=== PATIENT | female | born 1955 | race African-American/Black ===

== ENCOUNTER 2016-12-02 17:57 | Emergency (ER) | payer MEDICAID ==
[~2016-12-02] VITALS: Ht 170.2 cm; Wt 66.7 kg
[~2016-12-02 17:57] MED LIST: CIPRO500 MG PO; CLINDAMYCIN HC300 MG ORAL; FLAGYL500 MG ORAL; GYNE-LOTRIMIN45 GM VG; IBUPROFEN600 MG ORAL; LEVAQUIN500 MG ORAL; MACRODANTIN100 MG PO; METRONIDAZOLE500 MG ORAL; NKM; NORCO 5-325 TA1 EACH ORAL; PHENAZOPYRIDIN100 MG PO; PROMETHAZINE-C118 M1 ORAL; TRAMADOL HCL50 MG ORAL; VIBRAMYCIN100 MG ORAL; VICODIN1 TAB PO; ZITHROMAX250 MG ORAL
[2016-12-02 18:06] VITALS: BP 98/68
[2016-12-02 18:40] LABS: APPEARANCE,URINE CLEAR; KETONES,URINE NEGATIVE (NEGATIVE); LEUKOCYTE ESTERASE ,URINE 1+ (NEGATIVE); NITRITE,URINE NEGATIVE (NEGATIVE); PH,URINE 5 (4.5-8.0); PROTEIN,URINE 1+ (NEGATIVE); UROBILINOGEN,URINE NORMAL MG/DL (0.0-1.0)
[2016-12-02 18:51] LABS: BACTERIA,URINE FEW /HPF; RBC,URINE 0-2 /HPF (0 - 2); SQUAMOUS EPITHELIAL CELL,UR FEW /LPF (NONE/OCC)
[2016-12-02] MEDS ORDERED: Phenazopyridine 200mg tab ORAL ONE (19:00)
[2016-12-02] MEDS ORDERED: Cephalexin 500mg cap ORAL ONE (19:00)
[2016-12-02] MEDS ORDERED: PHENAZOPYRIDIN200 MG ORAL (19:05)
[2016-12-02] MEDS ORDERED: CEPHALEXIN500 MG ORAL (19:05)
[2016-12-02 19:28] VITALS: BP 128/89
--- NOTE | 2016-12-02 20:17 | Emergency Room Report ---
History of Present Illness General Chief Complaint: General Complaint Source: Patient Present Illness [facility] The patient is a 60-year-old female presenting for possible urinary tract infection. She states that she has had increased urinary frequency and dysuria for the past 3 days. Pain is an 8/10 dull ache to the mid lower abdomen. Pain has also began to radiate to the lower back. No known provoking relieving factors. She denies any hematuria or vaginal discharge. She denies fever or chills Allergies: Coded Allergies: DOXYCYCLINE (Verified Allergy, Mild, 10/25/15) PENICILLINS (Verified Allergy, Mild, Hives, 02/06/12) Patient History Past Medical History: see triage record Pertinent Family History: none Reviewed Nursing Documentation: PMH: Agreed, PSxH: Agreed Nursing Documentation-PMH Past Medical History: No History, Except For Review of Systems All Other Systems: negative except mentioned in HPI Physical Exam Vital Signs Date Time Temp Pulse Resp B/P Pulse Ox O2 Delivery O2 Flow Rate FiO2 12/02/16 18:06 97.9 92 16 98/68 99 Room Air Sp02 EP Interpretation: reviewed, normal General Appearance: no apparent distress, alert, GCS 15, non-toxic Head: normocephalic, atraumatic Eyes: bilateral eye PERRL, bilateral eye normal inspection ENT: hearing grossly normal, normal pharynx, no angioedema, normal voice Neck: full range of motion, supple/symm/no masses Respiratory: chest non-tender, lungs clear, normal breath sounds, speaking full sentences Gastrointestinal: normal bowel sounds, soft, non-distended, no guarding, no rebound, tenderness - suprapubic Rectal: deferred Genitourinary: normal inspection, no CVA tenderness Musculoskeletal: back normal, gait/station normal, normal range of motion, non- tender, calf tenderness Neurologic: alert, oriented x3, responsive, motor strength/tone normal, sensory intact, speech normal Psychiatric: judgement/insight normal, memory normal, mood/affect normal, no suicidal/homicidal ideation Skin: normal color, no rash, warm/dry, well hydrated Medical Decision Making PA Attestation Dr. Jimenez is my supervising physician. Patient management was discussed with my supervising physician Diagnostic Impression: Primary Impression: Urinary tract infection Qualified Codes: N39.0 - Urinary tract infection, site not specified ER Course The patient is a 60-year-old female presenting for possible urinary tract infection. Differential diagnosis considered but not limited to: UTI, vaginitis, pyelonephritis, pyelonephrosis, among others PE: Afebrile. Apparent distress Abdomen is soft. There is localized tenderness to palpation over suprapubic region. No CVA tenderness Urinalysis shows Only 1+ leukocyte esterase with few bacteria Primary due to the patient's symptoms, she'll be treated for UTI. Prescription for Keflex and Pyridium given. ER precautions given Laboratory Tests Test 12/02/16 18:11 Urine Color Yellow Urine Appearance Clear Urine pH 5 (4.5-8.0) Urine Specific [place] 1.020 (1.005-1.035) Urine Protein 1+ (NEGATIVE) H Urine Glucose (UA) Negative (NEGATIVE) Urine Ketones Negative (NEGATIVE) Urine Occult Blood Negative (NEGATIVE) Urine Nitrite Negative (NEGATIVE) Urine Bilirubin Negative (NEGATIVE) Urine Urobilinogen Normal MG/DL (0.0-1.0) Urine Leukocyte Esterase 1+ (NEGATIVE) H Urine RBC 0-2 /HPF (0 - 2) Urine WBC 2-4 /HPF (0 - 2) Urine Squamous Epithelial Cells Few /LPF (NONE/OCC) Urine Bacteria Few /HPF (NONE) Lab Results Impression Urinalysis shows 1+ leukocyte esterase as well as few bacteria no nitrites Last Vital Signs Date Time Temp Pulse Resp B/P Pulse Ox O2 Delivery O2 Flow Rate FiO2 12/02/16 19:28 98.9 89 18 128/89 100 Room Air Status: improved Disposition: HOME, SELF-CARE Condition: Improved Scripts Cephalexin* (KEFLEX*) 500 Mg Capsule 500 MG ORAL EVERY 12 HOURS, #14 CAP 0 Refills Prov: TERZIAN,SOFIA P.A. 12/02/16 Phenazopyridine Hcl* (PYRIDIUM*) 200 Mg Tablet 200 MG ORAL THREE TIMES A DAY, #6 TAB 0 Refills Prov: TERZIAN,SOFIA P.A. 12/02/16 Patient Instructions: Urinary Tract Infection Additional Instructions: I discussed my findings with the patient. All questions and concerns have been answered. Treatment and medication compliance have been addressed. I advised the patient that they need to follow up with PMD in 3-5 days. Return to ED if symptoms worsen, new symptoms arise, or if needed for any reason. Patient verbalized understanding of discharge instructions. TERBROAN,SOFIA P.A. Dec 02, 2016 20:17
== END 2016-12-02 19:28 | disposition home or self-care (01) ==
LOC: EMR 18:35
DX: N39.0 Urinary tract infection, site not specified (principal); M54.5 Low back pain; Z88.0 Allergy status to penicillin; Z88.8 Allergy status to other drugs, medicaments and biological substances
CPT/HCPCS: 81003; 99284

== ENCOUNTER 2016-12-11 13:39 | Emergency (ER) | payer MEDICAID ==
[~2016-12-11] VITALS: Ht 170.2 cm; Wt 65.8 kg
[~2016-12-11 13:39] MED LIST changes: +CEPHALEXIN500 MG ORAL; +PHENAZOPYRIDIN200 MG ORAL
[2016-12-11 14:38] VITALS: BP 100/71
[2016-12-11 15:02] LABS: APPEARANCE,URINE SLIGHTLY CLOUDY; KETONES,URINE NEGATIVE (NEGATIVE); LEUKOCYTE ESTERASE ,URINE 1+ (NEGATIVE); NITRITE,URINE NEGATIVE (NEGATIVE); PH,URINE 5 (4.5-8.0); PROTEIN,URINE NEGATIVE (NEGATIVE); UROBILINOGEN,URINE NORMAL MG/DL (0.0-1.0)
[2016-12-11 15:19] LABS: BACTERIA,URINE MODERATE /HPF; ICTOTEST NEGATIVE; RBC,URINE 0-2 /HPF (0 - 2); SQUAMOUS EPITHELIAL CELL,UR MANY /LPF (NONE/OCC)
--- NOTE | 2016-12-11 15:23 | Emergency Room Report ---
History of Present Illness General Chief Complaint: Female Urogenital Problems Source: Patient Present Illness HPI 60-year-old female presents to the emergency department complaining of recurrence of dysuria, reports the, and bladder discomfort x3 days. Patient states that she was treated approximately one week ago for UTI. She states that her symptoms were resolved temporarily that return. Patient denies fevers or chills. Patient denies low back pain, abdominal tenderness or rashes. denies vaginal discharge or hematuria. pt. also reports cloudy appearance and strong odor of urine. Denies constipation or diarrhea. Denies CP, Palpitations, LOC, AMS, dizziness, Changes in Vision, Sensation, paresthesias, or a sudden severe headache. Allergies: Coded Allergies: DOXYCYCLINE (Verified Allergy, Mild, 10/25/15) PENICILLINS (Verified Allergy, Mild, Hives, 02/06/12) Patient History Past Medical History: see triage record Past Surgical History: none Pertinent Family History: none Now: No Reviewed Nursing Documentation: PMH: Agreed, PSxH: Agreed Review of Systems All Other Systems: negative except mentioned in HPI Physical Exam Vital Signs Date Time Temp Pulse Resp B/P Pulse Ox O2 Delivery O2 Flow Rate FiO2 12/11/16 13:42 98.1 100 16 100/71 96 Room Air Sp02 EP Interpretation: reviewed, normal General Appearance: no apparent distress, alert, GCS 15, non-toxic Head: normocephalic, atraumatic Eyes: bilateral eye PERRL, bilateral eye normal inspection ENT: hearing grossly normal, normal voice Neck: full range of motion Respiratory: lungs clear, normal breath sounds, speaking full sentences Cardiovascular #1: regular rate, rhythm, tachycardia - 100bpm Gastrointestinal: normal bowel sounds, non tender, soft, no guarding, no rebound, other - no abdominal ttp Genitourinary: normal inspection, no CVA tenderness Musculoskeletal: back normal, gait/station normal, normal range of motion Neurologic: alert, oriented x3, responsive, motor strength/tone normal, sensory intact, speech normal Psychiatric: judgement/insight normal, memory normal, mood/affect normal Skin: normal color, no rash, warm/dry, well hydrated Medical Decision Making PA Attestation Dr. Jimenez is my supervising Physician whom patient management has been discussed with. Diagnostic Impression: Primary Impression: UTI (urinary tract infection) Qualified Codes: N30.01 - Acute cystitis with hematuria ER Course 60-year-old female presents to the emergency department complaining of recurrence of dysuria, reports the, and bladder discomfort x3 days. Patient states that she was treated approximately one week ago for UTI. She states that her symptoms were resolved temporarily that return. Patient denies fevers or chills. Patient denies low back pain, abdominal tenderness or rashes. denies vaginal discharge or hematuria. pt. also reports cloudy appearance and strong odor of urine. Denies constipation or diarrhea. Denies CP, Palpitations, LOC, AMS, dizziness, Changes in Vision, Sensation, paresthesias, or a sudden severe headache. Ddx considered but are not limited to UTi , Pyelo, STI, Stone, Cystitis Vital signs: are WNL, pt. is afebrile H&PE are most consistent with UTI ORDERS: - UA labs are attached : positive for many bacteria, elevated WBC's and leukocyte esterases consistent with UTI ED INTERVENTIONS: -Pyridium PO DISCHARGE: At this time pt. is stable for d/c to home. Will provide printed patient care instructions, and any necessary prescriptions. Care plan and follow up instructions have been discussed with the patient prior to discharge. Labs Test 12/11/16 14:45 Urine Color [place] Urine Appearance Slightly cloudy Urine pH 5 (4.5-8.0) Urine Specific [place] 1.025 (1.005-1.035) Urine Protein Negative (NEGATIVE) Urine Glucose (UA) Negative (NEGATIVE) Urine Ketones Negative (NEGATIVE) Urine Occult Blood Negative (NEGATIVE) Urine Nitrite Negative (NEGATIVE) Urine Bilirubin Negative (NEGATIVE) Urine Ictotest Negative Urine Urobilinogen Normal MG/DL (0.0-1.0) Urine Leukocyte Esterase 1+ (NEGATIVE) Urine RBC 0-2 /HPF (0 - 2) Urine WBC 5-10 /HPF (0 - 2) Urine Squamous Epithelial Cells Many /LPF (NONE/OCC) Urine Bacteria Moderate /HPF (NONE) Last Vital Signs Date Time Temp Pulse Resp B/P Pulse Ox O2 Delivery O2 Flow Rate FiO2 12/11/16 14:38 98.1 78 16 100/71 96 Room Air Disposition: HOME, SELF-CARE Condition: Stable Scripts Phenazopyridine Hcl* (PYRIDIUM*) 100 Mg Tablet 100 MG ORAL THREE TIMES A DAY for 3 Days, #9 TAB Prov: Zoe Chahal 12/11/16 Trimethoprim/Sulfamethoxazole 160/800* (BACTRIM DS TABLET*) 1 Each Tablet 1 TAB ORAL TWICE A DAY for 5 Days, #10 TAB Prov: Zoe Chahal 12/11/16 Referrals: NON PHYSICIAN (PCP) Patient Instructions: Urinary Tract Infection Additional Instructions: Take medications as directed. Follow up with a Primary Care Provider in 3-5 days, even if your symptoms have resolved. --Please review list of primary care clinics, if you do not already have a primary care provider Return sooner to ED if new symptoms occur, or current symptoms become worse. Pyridium will cause your urine to change color (Red/[place]), this is a normal side effect of the medication. - Please note that this Emergency Department Report was dictated using [employer] naturopathic medicine technology software, occasionally this can lead to erroneous entry secondary to interpretation by the dictation equipment. Zoe Chahal Dec 11, 2016 15:23
[2016-12-11] MEDS ORDERED: BACTRIM DS TAB1 EAC1 ORAL (15:24)
[2016-12-11] MEDS ORDERED: PHENAZOPYRIDIN100 MG ORAL (15:24)
[2016-12-11] MEDS ORDERED: Phenazopyridine 200mg tab ORAL ONE (15:30)
[2016-12-11 15:34] VITALS: BP 100/71
== END 2016-12-11 15:38 | disposition home or self-care (01) ==
LOC: EMR 14:32
DX: N30.01 Acute cystitis with hematuria (principal); Z88.0 Allergy status to penicillin; Z88.8 Allergy status to other drugs, medicaments and biological substances
CPT/HCPCS: 81003; 87086; 99284

== ENCOUNTER 2017-04-28 17:42 | Emergency (ER) | payer MEDICAID ==
[~2017-04-28] VITALS: Ht 170.2 cm; Wt 68.0 kg
[~2017-04-28 17:42] MED LIST changes: +BACTRIM DS TAB1 EAC1 ORAL; +PHENAZOPYRIDIN100 MG ORAL
[2017-04-28 17:57] VITALS: BP 99/63
[2017-04-28] MEDS ORDERED: Phenazopyridine 200mg tab ORAL ONE (18:00)
[2017-04-28 18:45] LABS: APPEARANCE,URINE CLEAR; BILIRUBIN, URINE NEGATIVE (NEGATIVE); GLUCOSE, URINE (UA) NEGATIVE (NEGATIVE); KETONES,URINE NEGATIVE (NEGATIVE); LEUKOCYTE ESTERASE ,URINE 1+ (NEGATIVE); NITRITE,URINE NEGATIVE (NEGATIVE); PH,URINE 5 (4.5-8.0); PROTEIN,URINE 1+ (NEGATIVE); UROBILINOGEN,URINE NORMAL MG/DL (0.0-1.0)
[2017-04-28 18:51] LABS: COLOR,URINE YELLOW
--- NOTE | 2017-04-28 19:07 | Emergency Room Report ---
History of Present Illness General Chief Complaint: Female Urogenital Problems Present Illness HPI 61-year-old female presents to the emergency department complaining of dysuria and urinary frequency x3 days. Patient denies nausea, vomiting, fevers, chills. She denies pain at this time. Denies hematuria, abdominal pain or tenderness. Denies confusion. Denies CP, Palpitations, LOC, AMS, dizziness, Changes in Vision, Sensation, paresthesias, or a sudden severe headache. Allergies: Coded Allergies: DOXYCYCLINE (Verified Allergy, Mild, 10/25/15) PENICILLINS (Verified Allergy, Mild, Hives, 02/06/12) Patient History Past Medical History: see triage record Past Surgical History: none Pertinent Family History: none Now: No Immunizations: UTD Reviewed Nursing Documentation: PMH: Agreed, PSxH: Agreed Review of Systems All Other Systems: negative except mentioned in HPI Physical Exam Vital Signs Date Time Temp Pulse Resp B/P (MAP) Pulse Ox O2 Delivery O2 Flow Rate FiO2 04/28/17 17:47 97.9 66 20 99/63 99 Room Air Sp02 EP Interpretation: reviewed, normal General Appearance: no apparent distress, alert, GCS 15, non-toxic Head: normocephalic, atraumatic ENT: hearing grossly normal, normal voice Neck: full range of motion Respiratory: lungs clear, normal breath sounds, speaking full sentences Cardiovascular #1: regular rate, rhythm Gastrointestinal: normal bowel sounds, non tender, soft, no guarding Rectal: deferred Genitourinary: normal inspection, no CVA tenderness Musculoskeletal: back normal, gait/station normal, normal range of motion, non- tender Neurologic: alert, oriented x3, responsive, motor strength/tone normal, sensory intact, normal gait, speech normal Skin: normal color, no rash, warm/dry, well hydrated Medical Decision Making PA Attestation Dr. Wilson is my supervising Physician whom patient management has been discussed with. Diagnostic Impression: Primary Impression: Dysuria Additional Impression: Urinary tract infection Qualified Codes: N30.00 - Acute cystitis without hematuria ER Course Pt. presents to the ED c/o dysuria, x 3 days. Ddx considered but are not limited to UTi , Pyelo, STI, Stone, Cystitis Vital signs: are WNL, pt. is afebrile H&PE are most consistent with UTI ORDERS: - UA labs are attached : few bacteria and few squamous cells suspicious for contamination -- as pt. is symptomatic will treat clinically. ED INTERVENTIONS: -Pyridium PO DISCHARGE: At this time pt. is stable for d/c to home. Will provide printed patient care instructions, and any necessary prescriptions. Care plan and follow up instructions have been discussed with the patient prior to discharge. Labs Test 04/28/17 18:20 Urine Color Yellow Urine Appearance Clear Urine pH 5 (4.5-8.0) Urine Specific [place] 1.025 (1.005-1.035) Urine Protein 1+ (NEGATIVE) Urine Glucose (UA) Negative (NEGATIVE) Urine Ketones Negative (NEGATIVE) Urine Occult Blood 1+ (NEGATIVE) Urine Nitrite Negative (NEGATIVE) Urine Bilirubin Negative (NEGATIVE) Urine Urobilinogen Normal MG/DL (0.0-1.0) Urine Leukocyte Esterase 1+ (NEGATIVE) Urine RBC 0-2 /HPF (0 - 2) Urine WBC 0-2 /HPF (0 - 2) Urine Squamous Epithelial Cells Few /LPF (NONE/OCC) Urine Bacteria Few /HPF (NONE) Urine Mucus Few /LPF (NONE/OCC) Last Vital Signs Date Time Temp Pulse Resp B/P (MAP) Pulse Ox O2 Delivery O2 Flow Rate FiO2 04/28/17 17:57 97.9 20 99/63 99 Room Air 04/28/17 17:47 66 Disposition: HOME, SELF-CARE Condition: Stable Scripts Phenazopyridine Hcl* (PYRIDIUM*) 200 Mg Tablet 200 MG ORAL THREE TIMES A DAY for 3 Days, #9 TAB 0 Refills Prov: Zoe Chahal 04/28/17 Nitrofurantoin Monohyd/M-Cryst* (MACROBID 100 MG*) 100 Mg Capsule 100 MG ORAL EVERY 12 HOURS for 5 Days, #10 CAP Prov: Zoe Chahal 04/28/17 Referrals: NOT CHOSEN [facility]/MD,REFERRING (PCP) Patient Instructions: Urinary Tract Infection Additional Instructions: Take medications as directed. Follow up with a Primary Care Provider in 3-5 days, even if your symptoms have resolved. --Please review list of primary care clinics, if you do not already have a primary care provider Return sooner to ED if new symptoms occur, or current symptoms become worse. Pyridium will cause your urine to change color (Red/[place]), this is a normal side effect of the medication. - Please note that this Emergency Department Report was dictated using [employer] cleaner technology software, occasionally this can lead to erroneous entry secondary to interpretation by the dictation equipment. Zoe Chahal Apr 28, 2017 19:07
[2017-04-28] MEDS ORDERED: PHENAZOPYRIDIN200 MG ORAL (19:09)
[2017-04-28] MEDS ORDERED: NITROFURANTOIN100 M2 ORAL (19:09)
[2017-04-28 19:28] VITALS: BP 107/68
== END 2017-04-28 19:28 | disposition home or self-care (01) ==
LOC: EMR 18:18
DX: N39.0 Urinary tract infection, site not specified (principal); Z88.0 Allergy status to penicillin
CPT/HCPCS: 81003; 99284

== ENCOUNTER 2017-05-03 17:11 | Emergency (ER) | payer MEDICAID ==
[~2017-05-03] VITALS: Ht 170.2 cm; Wt 68.0 kg
[~2017-05-03 17:11] MED LIST changes: +NITROFURANTOIN100 M2 ORAL
[2017-05-03 17:16] VITALS: BP 97/62
[2017-05-03] MEDS ORDERED: BACTRIM DS TAB1 EAC1 ORAL (18:05)
[2017-05-03 18:15] VITALS: BP 97/62
[2017-05-03] MEDS ORDERED: Bactrim-DS 1 tab ORAL ONE (18:15)
--- NOTE | 2017-05-04 12:50 | Emergency Room Report ---
History of Present Illness General Chief Complaint: Abdominal Pain Source: Patient Present Illness HPI 62-year-old female presents ED for evaluation. Facies been having superpubic pain and dysuria for the last several days. Was seen here a few days ago and noted to have UTI. Patient was discharged on Macrobid. Patient states she does not normally tolerate Macrobid well and is feeling nauseous. States she does well with Bactrim. Denies fevers or chills. Denies flank pain. Denies vomiting. No other aggravating relieving factors. Denies any other associated symptoms Allergies: Coded Allergies: DOXYCYCLINE (Verified Allergy, Mild, 10/25/15) PENICILLINS (Verified Allergy, Mild, Hives, 02/06/12) Patient History Past Medical History: none Past Surgical History: none Pertinent Family History: none Social History: Denies: smoking, alcohol use, drug use Now: No Immunizations: UTD Reviewed Nursing Documentation: PMH: Agreed, PSxH: Agreed Review of Systems All Other Systems: negative except mentioned in HPI Physical Exam Vital Signs Date Time Temp Pulse Resp B/P (MAP) Pulse Ox O2 Delivery O2 Flow Rate FiO2 05/03/17 17:16 98.2 74 20 97/62 99 Room Air Sp02 EP Interpretation: reviewed, normal General Appearance: no apparent distress, alert, GCS 15, non-toxic Head: normocephalic Eyes: bilateral eye normal inspection, bilateral eye PERRL ENT: normal ENT inspection Neck: normal inspection Respiratory: normal inspection Cardiovascular #1: normal inspection Gastrointestinal: normal bowel sounds, non tender, soft, non-distended, no guarding, no rebound Rectal: deferred Genitourinary: no CVA tenderness Musculoskeletal: normal inspection Neurologic: alert, oriented x3, responsive, motor strength/tone normal, sensory intact, speech normal Psychiatric: normal inspection Skin: normal inspection Lymphatic: normal inspection Medical Decision Making Diagnostic Impression: Primary Impression: Dysuria ER Course Hospital Course 62-year-old female presents to ED complaining of dysuria. Differential diagnoses include: UTI, cystitis, pyelonephritis Clinical course Patient placed on stretcher. After initial history and physical I reviewed EMR. Patient was seen here a few days ago and was noted to have UTI. UA does show evidence of bacteria. Patient was discharged on Macrobid. Patient is asking to switch prescription for Bactrim Agreed to switch prescription. Diagnosis - dysuria Stable and discharged home with prescriptions for Rx Bactrim. discontinue Macrobid. Instructed to followup with PMD. Return to ED if symptoms recur or worsen Last Vital Signs Date Time Temp Pulse Resp B/P (MAP) Pulse Ox O2 Delivery O2 Flow Rate FiO2 05/03/17 18:15 98.2 74 20 97/62 99 Room Air Status: improved Disposition: HOME, SELF-CARE Condition: Stable Scripts Trimethoprim/Sulfamethoxazole 160/800* (BACTRIM DS TABLET*) 1 Each Tablet 1 TAB ORAL Q12H, #14 TAB 0 Refills Prov: NICHOLAS COTTRELL M.D. 05/03/17 Referrals: NOT CHOSEN [facility]/,REFERRING (PCP) Patient Instructions: Dysuria NICHOLAS COTTRELL M.D. May 04, 2017 12:50
== END 2017-05-03 18:15 | disposition home or self-care (01) ==
LOC: EMR 18:10
DX: R30.0 Dysuria (principal); R10.30 Lower abdominal pain, unspecified; Z88.0 Allergy status to penicillin
CPT/HCPCS: 99283

== ENCOUNTER 2017-07-31 21:05 | Emergency (ER) | payer MEDICAID ==
[~2017-07-31] VITALS: Ht 170.2 cm; Wt 66.7 kg
--- NOTE | 2017-07-31 21:54 | Emergency Room Report ---
History of Present Illness General Chief Complaint: Pain Source: Patient Present Illness HPI This a 62-year-old female who presents here frequently for UTI/pelvic pain. Onset this time was for last 3 days. Does have some dysuria and frequency. No hematuria. Also complaining of buttock pain is been ongoing for about a couple weeks ever since she sat on the cement floor. Pain is throbbing in nature. Worse with pushing on it. No incontinence of bowel or urine. No fever chills. No nausea no vomiting. Pain is 7 out of 10. Allergies: Coded Allergies: DOXYCYCLINE (Verified Allergy, Mild, 10/25/15) PENICILLINS (Verified Allergy, Mild, Hives, 02/06/12) Patient History Past Medical History: see triage record, old chart reviewed Pertinent Family History: none Social History: Denies: smoking Last Menstrual Period: years Now: No Immunizations: other Reviewed Nursing Documentation: PMH: Agreed; PSxH: Agreed Review of Systems Eye: Denies: eye pain, blurred vision ENT: Denies: ear pain, nose congestion, throat swelling Respiratory: Denies: cough, shortness of breath Cardiovascular: Denies: chest pain, palpitations Gastrointestinal: Denies: abdominal pain, diarrhea, nausea, vomiting Genitourinary: Reports: dysuria, frequency Musculoskeletal: Denies: back pain, joint pain Skin: Denies: rash Neurological: Denies: headache, numbness Endocrine: Denies: increased thirst, increased urine Hematologic/Lymphatic: Denies: easy bruising All Other Systems: negative except mentioned in HPI Physical Exam Vital Signs Date Time Temp Pulse Resp B/P (MAP) Pulse Ox O2 Delivery O2 Flow Rate FiO2 07/31/17 21:30 98.5 63 20 97/65 94 Room Air 98.4 vitals normal Sp02 EP Interpretation: reviewed, normal General Appearance: well appearing, no apparent distress, alert Head: normocephalic, atraumatic Eyes: bilateral eye PERRL, bilateral eye EOMI ENT: hearing grossly normal, normal pharynx Neck: full range of motion, supple, no meningismus Respiratory: chest non-tender, lungs clear, normal breath sounds Cardiovascular #1: regular rate, rhythm, no murmur Gastrointestinal: normal bowel sounds, non tender, no mass, no organomegaly, no bruit, non-distended Musculoskeletal: back normal, gait/station normal, normal range of motion Psychiatric: mood/affect normal Skin: warm/dry Medical Decision Making Diagnostic Impression: Primary Impression: Dysuria Additional Impression: Pelvic pain ER Course Patient with dysuria and pelvic pain. She looks comfortable. No evidence of any sepsis, pneumonia, UTI, pyelonephritis. This may be postmenopausal pain. We'll recommend follow-up with emergency medicine for further workup. Last Vital Signs Date Time Temp Pulse Resp B/P (MAP) Pulse Ox O2 Delivery O2 Flow Rate FiO2 07/31/17 21:30 98.5 63 20 97/65 94 Room Air 98.4 Status: improved Disposition: HOME, SELF-CARE Condition: Stable Scripts Phenazopyridine Hcl* (PYRIDIUM*) 100 Mg Tablet 100 MG ORAL THREE TIMES A DAY, #6 TAB Prov: GABY QUACH M.D. 07/31/17 Trimethoprim/Sulfamethoxazole 160/800* (BACTRIM DS TABLET*) 1 Each Tablet 1 TAB ORAL Q12H, #6 TAB 0 Refills Prov: GABY QUACH M.D. 07/31/17 Referrals: NOT CHOSEN [facility]/,REFERRING (PCP) Patient Instructions: PAIN, Uncertain Cause (Acute) Additional Instructions: Follow-up with your emergency medicine in 7 days. Return if symptom worsen. GABY QUACH M.D. Jul 31, 2017 21:54
[2017-07-31 21:59] VITALS: BP 97/65
[2017-07-31 22:28] LABS: APPEARANCE,URINE CLEAR; BILIRUBIN, URINE NEGATIVE (NEGATIVE); GLUCOSE, URINE (UA) NEGATIVE (NEGATIVE); KETONES,URINE NEGATIVE (NEGATIVE); LEUKOCYTE ESTERASE ,URINE 1+ (NEGATIVE); NITRITE,URINE NEGATIVE (NEGATIVE); PH,URINE 5 (4.5-8.0); PROTEIN,URINE NEGATIVE (NEGATIVE); UROBILINOGEN,URINE NORMAL MG/DL (0.0-1.0)
[2017-07-31 22:31] LABS: COLOR,URINE YELLOW
[2017-07-31] MEDS ORDERED: BACTRIM DS TAB1 EAC1 ORAL (22:49)
[2017-07-31] MEDS ORDERED: PHENAZOPYRIDIN100 MG ORAL (22:49)
[2017-07-31 22:55] VITALS: BP 97/65
[2017-07-31] MEDS ORDERED: Bactrim-DS 1 tab ORAL ONE (23:00)
== END 2017-07-31 22:55 | disposition home or self-care (01) ==
LOC: EMR 21:50
DX: R30.0 Dysuria (principal); R10.2 Pelvic and perineal pain; R35.0 Frequency of micturition; Z88.0 Allergy status to penicillin
CPT/HCPCS: 81003; 99284

== ENCOUNTER 2017-09-07 05:56 | Emergency (ER) | payer MEDICAID ==
[~2017-09-07] VITALS: Ht 170.2 cm; Wt 68.5 kg
[2017-09-07 06:58] LABS: BILIRUBIN, URINE 2+ (NEGATIVE); GLUCOSE, URINE (UA) NEGATIVE (NEGATIVE); KETONES,URINE NEGATIVE (NEGATIVE); LEUKOCYTE ESTERASE ,URINE NEGATIVE (NEGATIVE); NITRITE,URINE POSITIVE (NEGATIVE); PH,URINE 5 (4.5-8.0); PROTEIN,URINE 1+ (NEGATIVE); UROBILINOGEN,URINE 8 MG/DL (0.0-1.0)
[2017-09-07 06:59] LABS: APPEARANCE,URINE CLEAR
[2017-09-07] MEDS ORDERED: CIPROFLOXACIN500 M2 ORAL (07:39)
[2017-09-07] MEDS ORDERED: PHENAZOPYRIDIN100 MG ORAL (07:39)
[2017-09-07 07:40] LABS: COLOR,URINE ORANGE
[2017-09-07 07:45] VITALS: BP_SYST 102; BP_SYST 108; BP_DIAS 62; BP_DIAS 65
--- NOTE | 2017-09-07 08:38 | Emergency Room Report ---
History of Present Illness General Chief Complaint: Female Urogenital Problems Source: Patient Present Illness HPI Patient presents with complaints of burning with urination Ongoing for the past one day Patient reports that she recently saw her primary physician However at that time had been complaining of rectal discomfort and was given referral to rectal specialist Patient reports that she was told previously here that [facility]/versus urology follow -up would also be appropriate Patient reports that she had taken one of her Pyridium Which did improve her symptom with this presentation Denies any abdominal pain denies any fevers or chills denies any flank pain Allergies: Coded Allergies: DOXYCYCLINE (Verified Allergy, Mild, 10/25/15) PENICILLINS (Verified Allergy, Mild, Hives, 02/06/12) Patient History Past Medical History: see triage record Pertinent Family History: none Last Menstrual Period: NA Reviewed Nursing Documentation: PMH: Agreed; PSxH: Agreed Review of Systems All Other Systems: negative except mentioned in HPI Physical Exam Vital Signs Date Time Temp Pulse Resp B/P (MAP) Pulse Ox O2 Delivery O2 Flow Rate FiO2 09/07/17 06:04 98.1 78 18 96/69 98 Room Air 98.1 Sp02 EP Interpretation: reviewed, normal General Appearance: well appearing, no apparent distress Head: normocephalic, atraumatic Eyes: bilateral eye PERRL, bilateral eye EOMI ENT: normal pharynx Neck: supple Gastrointestinal: non tender, soft Genitourinary: no CVA tenderness Musculoskeletal: normal inspection, back normal Neurologic: alert, oriented x3, responsive Skin: normal color, no rash Lymphatic: no adenopathy Medical Decision Making Diagnostic Impression: Primary Impression: dysuria ER Course Given the patient's presentation multiple differentials are considered Review of medical records reveals multiple emergency room visits for similar complaint Urine sample today did show positive nitrite however leukocytes were negative And there appears to be significant contamination Patient is encouraged to follow up with her primary physician for further urology/gynecology follow-up Patient voices frustration regarding the continued discomfort I do agree with her frustration, patient did recently see her primary physician and I encouraged improved outpatient follow-up Labs Test 09/07/17 06:22 Urine Color [place] Urine Appearance Clear Urine pH 5 (4.5-8.0) Urine Specific [place] 1.025 (1.005-1.035) Urine Protein 1+ (NEGATIVE) Urine Glucose (UA) Negative (NEGATIVE) Urine Ketones Negative (NEGATIVE) Urine Occult Blood Negative (NEGATIVE) Urine Nitrite Positive (NEGATIVE) Urine Bilirubin 2+ (NEGATIVE) Urine Ictotest Negative Urine Urobilinogen 8 MG/DL (0.0-1.0) Urine Leukocyte Esterase Negative (NEGATIVE) Urine RBC 0-2 /HPF (0 - 2) Urine WBC 0-2 /HPF (0 - 2) Urine Squamous Epithelial Cells Moderate /LPF (NONE/OCC) Urine Bacteria Few /HPF (NONE) Last Vital Signs Date Time Temp Pulse Resp B/P (MAP) Pulse Ox O2 Delivery O2 Flow Rate FiO2 09/07/17 07:45 98.1 85 18 102/65 98 Room Air 98.1 Status: unchanged Disposition: HOME, SELF-CARE Condition: Stable Scripts Phenazopyridine Hcl* (PYRIDIUM*) 100 Mg Tablet 100 MG ORAL THREE TIMES A DAY, #9 TAB Prov: Buck Fernando DO 09/07/17 Ciprofloxacin Hcl* (CIPROFLOXACIN HCL*) 500 Mg Tablet 500 MG ORAL Q12H, #14 TAB 0 Refills Prov: Buck Fernando DO 09/07/17 Referrals: NON PHYSICIAN (PCP) Patient Instructions: Dysuria Additional Instructions: Patient is provided with the discharge instructions notified to follow up with primary doctor in the next 2-3 days otherwise return to the er with any worsening symptoms. Please note that this report is being documented using [employer] technology. This can lead to erroneous entry secondary to incorrect interpretation by the dictating instrument. Buck Fernando DO September 07, 2017 08:38
== END 2017-09-07 08:21 | disposition home or self-care (01) ==
LOC: EMR 07:45
DX: R30.0 Dysuria (principal)
CPT/HCPCS: 81003; 99284

== ENCOUNTER 2018-03-26 16:25 | Emergency (ER) | payer MEDICAID ==
[~2018-03-26] VITALS: Ht 170.2 cm; Wt 65.8 kg
[~2018-03-26 16:25] MED LIST changes: +CIPROFLOXACIN500 M2 ORAL
[2018-03-26] MEDS ORDERED: NKM (16:33)
[2018-03-26 16:39] VITALS: BP 115/74
--- NOTE | 2018-03-26 17:00 | Emergency Room Report ---
History of Present Illness General Chief Complaint: General Complaint Source: Patient Present Illness HPI 62-year-old female patient presents to ER complaining anxiety after drinking coffee was CBD in it earlier today.. Patient reports that she has dry mouth and is feeling anxious. Denies history of anxiety. Denies thoughts of hurting herself or others. Denies fever, chest pain, shortness of breath, vomiting. Denies other acute symptoms. Patient is requesting we "test her coffee and blood " for the "liquid CBD". Reports history of smoking marijuana. Denies other drug use. Denies drinking. Allergies: Coded Allergies: DOXYCYCLINE (Verified Allergy, Mild, 10/25/15) PENICILLINS (Verified Allergy, Mild, Hives, 02/06/12) Patient History Past Medical History: see triage record Now: No Reviewed Nursing Documentation: PMH: Agreed; PSxH: Agreed Nursing Documentation-PMH Past Medical History: No History, Except For Review of Systems All Other Systems: negative except mentioned in HPI Physical Exam Vital Signs Date Time Temp Pulse Resp B/P (MAP) Pulse Ox O2 Delivery O2 Flow Rate FiO2 03/26/18 16:28 98.4 79 19 128/83 97 Room Air Sp02 EP Interpretation: reviewed, normal General Appearance: well appearing, no apparent distress, alert, GCS 15, non- toxic Head: normocephalic, atraumatic Eyes: bilateral eye normal inspection, bilateral eye PERRL ENT: hearing grossly normal, normal pharynx, no angioedema, normal voice, uvula midline, moist mucus membranes Neck: full range of motion Respiratory: lungs clear, normal breath sounds, no rhonchi, no respiratory distress, no accessory muscle use, no wheezing, speaking full sentences Cardiovascular #1: regular rate, rhythm, no edema Gastrointestinal: non tender, soft, no mass, non-distended, no guarding, no rebound Genitourinary: no CVA tenderness Musculoskeletal: back normal, digits/nails normal, gait/station normal, normal range of motion, non-tender Neurologic: alert, oriented x3, responsive, marketing lead III-XII nml as tested, motor strength/tone normal, sensory intact Psychiatric: mood/affect normal Skin: no rash Lymphatic: no adenopathy Medical Decision Making Medicare Attestation Dr. Venegas is my supervising Physician whom patient management has been discussed with. Diagnostic Impression: Primary Impression: Anxiety attack Additional Impression: Marijuana smoker ER Course Pt. presents to the ED c/o anxious feelings and requesting we test her blood in urine for liquid CBD. Ddx considered but are not limited to Drug use, anxiety, stress, marijuana use, panic disorder. Vital signs: are WNL, pt. is afebrile ER COURSE: physical exam benign, lungs clear to auscultation. Informed patient no special tests for "liquid CBD", would need to follow up with primary care provider to get referral to specialty lab for testing. offered to check urine drug screen for patient however informed her that because she smokes marijuana the results will come back positive, patient declined. patient denies suicidal or homicidal ideation, resting comfortably, talking without difficulty, does not require treatment for anxiety symptoms at this time. will not provide patient with anxiety medication this time, she is resting comfortably in no acute distress, nontoxic appearing. Do not believe patient is a danger to herself or others at this time. advised patient against marijuana and CBD use in excess, may lead to symptoms she is currently experiencing. ER precautions given. DISCHARGE: At this time pt is stable for d/c to home. Patient is resting comfortably, in no acute distress, nontoxic appearing, talking without difficulty. Patient to take medications as instructed Will provide with patient care instructions and any necessary prescriptions. Care plan and follow-up instructions provided. Patient instructed to follow-up with primary care provider in 3 - 5 days. Patient questions asked and answered. Patient reports understanding and agreement to treatment plan. ER precautions given. Patient instructed to return to ER immediately for any new or worsening of symptoms including but not limited to increasing SOB, persistent fever, chest pain, intractable vomiting. - Please note that this Emergency Department Report was dictated using [employer] entry technician technology software, occasionally this can lead to erroneous entry secondary to interpretation by the dictation equipment. Last Vital Signs Date Time Temp Pulse Resp B/P (MAP) Pulse Ox O2 Delivery O2 Flow Rate FiO2 03/26/18 16:39 98.6 77 14 115/74 95 Room Air Disposition: HOME, SELF-CARE Condition: Stable Patient Instructions: Cannabis Use Disorder, Generalized Anxiety Disorder Additional Instructions: Followup with primary care provider in 3 -5 days. Take medications as directed. Patient questions asked and answered. ER precautions given, patient instructed to return to ER immediately for any new or worsening of symptoms. Khadar Rea Mar 26, 2018 17:00
[2018-03-26 18:19] VITALS: BP 115/74
== END 2018-03-26 18:19 | disposition home or self-care (01) ==
LOC: EMR 17:30
DX: F41.9 Anxiety disorder, unspecified (principal); F17.290 Nicotine dependence, other tobacco product, uncomplicated; Z88.0 Allergy status to penicillin
CPT/HCPCS: 99282

== ENCOUNTER 2018-04-23 06:47 | Emergency (ER) | payer MEDICAID ==
[~2018-04-23] VITALS: Ht 170.2 cm; Wt 68.5 kg
[2018-04-23 07:00] VITALS: BP 102/72
--- NOTE | 2018-04-23 07:00 | NUR ---
ED Nurse Note: PT WALKED IN TO ER TODAY FROM HOME. AOX4. PT C/O FEVER AND NONPRODUCTIVE PAINFUL COUGH X 1 WEEK. ORAL TEMP AT BEDSIDE: 98.2F. LUNG SOUNDS CLEAR IN ALL LOBES. NO SIGNS OF RESPIRATORY DISTRESS.
[2018-04-23] MEDS ORDERED: Levofloxacin 500mg tab ORAL ONE (07:30)
[2018-04-23] MEDS ORDERED: PHENAZOPYRIDIN100 MG ORAL (07:50)
[2018-04-23] MEDS ORDERED: LEVAQUIN500 MG ORAL (07:50)
[2018-04-23] MEDS ORDERED: ROBITUSSIN NIG237 ML PO (07:50)
[2018-04-23 07:52] VITALS: BP 102/72
--- NOTE | 2018-04-23 07:53 | NUR ---
ED Nurse Note: PT LAYING PEACEFULLY IN BED IN NAD. AOX4. PRESCRIPTIONS AND DISCHARGE PAPERWORK EXPLAINED TO PT. PT VERBALIZES UNDERSTANDING AND DENIES ANY QUESTIONS AT THIS TIME. PRESCRIPTIONS AND DISCHARGE PAPERWORK GIVEN TO PT AND ID WRISTBAND REMOVED. PT WALKED OUT OF ER WITH STEADY GAIT AND ALL BELONGINGS.
--- NOTE | 2018-04-23 08:07 | Emergency Room Report ---
History of Present Illness General Chief Complaint: General Complaint Source: Patient Present Illness HPI Patient presents with complaints of increased cough and congestion her phlegm production has now turned darker in color Denies any chest pain with this denies any vomiting or diarrhea Patient reports that she felt she was getting somewhat better previously However again the increased cough persists Denies any recent travel denies any calf pain or swelling Patient also complains of some increased suprapubic discomfort with the cough Denies any rash Allergies: Coded Allergies: DOXYCYCLINE (Verified Allergy, Mild, 10/25/15) PENICILLINS (Verified Allergy, Mild, Hives, 02/06/12) Patient History Past Medical History: see triage record Pertinent Family History: none Last Menstrual Period: did not want to answer. Reviewed Nursing Documentation: PMH: Agreed; PSxH: Agreed Nursing Documentation-PMH Past Medical History: No Stated History Review of Systems All Other Systems: negative except mentioned in HPI Physical Exam Vital Signs Date Time Temp Pulse Resp B/P (MAP) Pulse Ox O2 Delivery O2 Flow Rate FiO2 04/23/18 06:57 98.2 66 18 106/73 99 Room Air Sp02 EP Interpretation: reviewed, normal General Appearance: well appearing, no apparent distress Head: normocephalic, atraumatic Eyes: bilateral eye PERRL, bilateral eye EOMI ENT: hearing grossly normal, normal pharynx, TMs + canals normal, uvula midline Neck: full range of motion, supple, no meningismus, no bony tend Respiratory: lungs clear, normal breath sounds, no rhonchi, no respiratory distress, no retraction, no accessory muscle use Cardiovascular #1: normal peripheral pulses, regular rate, rhythm, no edema, no gallop, no JVD, no murmur Gastrointestinal: normal bowel sounds, non tender, soft, no mass, no organomegaly, non-distended, no guarding, no hernia, no pulsatile mass, no rebound Genitourinary: no CVA tenderness Musculoskeletal: normal inspection Neurologic: oriented x3, responsive, interior plant caretaker III-XII nml as tested, motor strength/ tone normal, sensory intact Psychiatric: mood/affect normal Skin: normal color, no rash, warm/dry, palpation normal Lymphatic: normal inspection, no adenopathy Medical Decision Making Diagnostic Impression: Primary Impression: atypical pneumonia ER Course Patient otherwise has a fairly benign medical evaluation Saturations are appropriate Respirations did not show any anomaly Given the duration of symptoms and the complaints Patient will be covered for community acquired pneumonia also discussed with her regarding her bladder pathology and the need for close follow-up Patient has been aware of the need for this And has reported previous attempts of follow-up however has not appropriately followed up Patient also reports that she recently stopped smoking marijuana and cigarettes and does feel better with that Last Vital Signs Date Time Temp Pulse Resp B/P (MAP) Pulse Ox O2 Delivery O2 Flow Rate FiO2 04/23/18 07:52 98.2 62 16 102/72 99 Room Air Status: improved Disposition: HOME, SELF-CARE Condition: Improved Scripts Phenazopyridine Hcl* (PYRIDIUM*) 100 Mg Tablet 100 MG ORAL THREE TIMES A DAY, #6 TAB Prov: Buck Fernando DO 04/23/18 Dextromethorphan Hb/Doxylamine (ROBITUSSIN NIGHTTIME COUGH DM) 237 Ml Liquid 10 ML PO QHS for 5 Days, ML Prov: Buck Fernando DO 04/23/18 Levofloxacin* (LEVAQUIN*) 500 Mg Tablet 500 MG ORAL DAILY for 5 Days, TAB Prov: Buck Fernando DO 04/23/18 Referrals: NON PHYSICIAN (PCP) Patient Instructions: Community-Acquired Pneumonia, Adult, [id number] Additional Instructions: As discussed previously it is crucial for you to have appropriate follow-up with your urologist/machine tender for further evaluation of your pelvic complaints Patient is provided with the discharge instructions notified to follow up with primary doctor in the next 2-3 days otherwise return to the er with any worsening symptoms. Please note that this report is being documented using [employer] technology. This can lead to erroneous entry secondary to incorrect interpretation by the dictating instrument. Buck Fernando DO Apr 23, 2018 08:07
== END 2018-04-23 07:53 | disposition home or self-care (01) ==
LOC: EMR 07:10
DX: J18.9 Pneumonia, unspecified organism (principal); Z88.0 Allergy status to penicillin
CPT/HCPCS: 99283

== ENCOUNTER 2018-06-24 13:29 | Emergency (ER) | payer MEDICAID ==
[~2018-06-24] VITALS: Ht 170.2 cm; Wt 65.8 kg
[~2018-06-24 13:29] MED LIST changes: +ROBITUSSIN NIG237 ML PO
[2018-06-24 13:34] VITALS: BP 107/61
--- NOTE | 2018-06-24 13:52 | NUR ---
ED Nurse Note: Pt. AAOX4. ambulatory. Came in to ER due to pt. reported vaginal burning and smell also lower back pain for 5 days
--- NOTE | 2018-06-24 14:18 | Emergency Room Report ---
History of Present Illness General Chief Complaint: Female Urogenital Problems Source: Patient Present Illness HPI Patient is a 63-year-old female presented after increased dysuria and vaginal burning sensation. Patient had reported having increased foul-smelling discharge. She had prior history of urinary tract infections in the past. She denies any prior history of stone. She reports having onset of symptoms 4 days ago.Patient denies any hematuria. Allergies: Coded Allergies: DOXYCYCLINE (Verified Allergy, Mild, 10/25/15) PENICILLINS (Verified Allergy, Mild, Hives, 02/06/12) Patient History Past Medical History: see triage record Reviewed Nursing Documentation: PMH: Agreed; PSxH: Agreed Nursing Documentation-PMH Past Medical History: No History, Except For Review of Systems All Other Systems: negative except mentioned in HPI Physical Exam Vital Signs Date Time Temp Pulse Resp B/P (MAP) Pulse Ox O2 Delivery O2 Flow Rate FiO2 06/24/18 13:34 98.2 67 17 107/61 99 Room Air Sp02 EP Interpretation: reviewed, normal General Appearance: normal inspection, well appearing, no apparent distress, alert, GCS 15, Chronically Ill Head: atraumatic ENT: normal ENT inspection, hearing grossly normal, normal voice Neck: normal inspection, full range of motion, supple, no bony tend Respiratory: normal inspection, no respiratory distress, no retraction Cardiovascular #1: regular rate, rhythm, no edema Gastrointestinal: normal inspection, soft, no guarding, no hernia Genitourinary: no CVA tenderness Musculoskeletal: normal inspection, back normal, normal range of motion Neurologic: normal inspection, alert, responsive, recovery operator helper III-XII nml as tested, speech normal Psychiatric: normal inspection, judgement/insight normal, mood/affect normal Skin: normal inspection, normal color, no rash Medical Decision Making Diagnostic Impression: Primary Impression: Vaginosis ER Course Patient presented for pelvic pain and vaginal discharge. Differential diagnosis include was not limited to urinary tract infection, atrophic vaginitis, gonorrhea, chlamydia among others. Pelvic ultrasound was ordered due to patient's symptoms. Patient denies any recent sexual activity.Urinalysis showed no definite urinary infection. Pelvic ultrasound was ordered Pelvic ultrasound showed no evidence of free fluid. Ovaries are poorly visualized. Uterine size appeared to be normal. Patient was advised to follow-up with her primary care physician. Patient is given prescription for medications for symptomatic treatment as well as [facility] Test 06/24/18 14:00 Urine Color Pale yellow Urine Appearance Clear Urine pH 5 (4.5-8.0) Urine Specific [place] 1.025 (1.005-1.035) Urine Protein Negative (NEGATIVE) Urine Glucose (UA) Negative (NEGATIVE) Urine Ketones Negative (NEGATIVE) Urine Blood Negative (NEGATIVE) Urine Nitrite Negative (NEGATIVE) Urine Bilirubin Negative (NEGATIVE) Urine Urobilinogen Normal MG/DL (0.0-1.0) Urine Leukocyte Esterase 1+ (NEGATIVE) Urine RBC 0 /HPF (0 - 2) Urine WBC 0-2 /HPF (0 - 2) Urine Squamous Epithelial Cells Moderate /LPF (NONE/OCC) Urine Bacteria Few /HPF (NONE) Last Vital Signs Date Time Temp Pulse Resp B/P (MAP) Pulse Ox O2 Delivery O2 Flow Rate FiO2 06/24/18 13:34 98.2 67 17 107/61 99 Room Air Status: improved Disposition: HOME, SELF-CARE Condition: Stable Scripts Metronidazole* (METROGEL-VAGINAL*) 70 Gm Gel.w.appl 1 APPL VAGIN EVERY 12 HOURS, #70 GM Prov: Man Arango MD 06/24/18 Man Arango MD Jun 24, 2018 14:18
[2018-06-24 14:32] LABS: APPEARANCE,URINE CLEAR; BILIRUBIN, URINE NEGATIVE (NEGATIVE); COLOR,URINE PALE YELLOW; GLUCOSE, URINE (UA) NEGATIVE (NEGATIVE); KETONES,URINE NEGATIVE (NEGATIVE); LEUKOCYTE ESTERASE ,URINE 1+ (NEGATIVE); NITRITE,URINE NEGATIVE (NEGATIVE); PH,URINE 5 (4.5-8.0); PROTEIN,URINE NEGATIVE (NEGATIVE); UROBILINOGEN,URINE NORMAL MG/DL (0.0-1.0)
[2018-06-24] MEDS ORDERED: METROGEL-VAGINA70 G1 VAGIN (14:54)
[2018-06-24] MEDS ORDERED: LIDODERM700 M1 TOPIC (15:05)
[2018-06-24] MEDS ORDERED: Acetaminophen 500mg (ES) tab ORAL ONE (15:15)
[2018-06-24 15:26] VITALS: BP 112/65
--- NOTE | 2018-06-24 15:28 | NUR ---
ED Nurse Note: PT. AAOX4. AMBULATORY. LEFT WITH STEADY GAIT. PT. EDUCATION DONE REGARDING D/C PAPERS AND PRESCRIPTIONS. VSS. ID ARMBAND REMOVED. PT. LEFT WITH ALL HER BELONGINGS.
--- NOTE | 2018-06-25 11:37 | Diagnostic Imaging Report ---
Indication: Pelvic pain Technique: Transabdominal images only. No endovaginal imaging, per referring physician request. Doppler interrogation of the adnexal regions Comparison: none Findings: Exam is limited due to patient body habitus, and empty bladder Uterus measures 4 cm length by 2.3 cm AP. Endometrium cannot be visualized. No gross myometrial abnormality. Neither ovary could be demonstrated. No gross free pelvic fluid. Impression: Very limited exam, as described Nonvisualized ovaries. No definite adnexal mass Atrophic uterus
== END 2018-06-24 15:28 | disposition home or self-care (01) ==
LOC: EMR 13:45
DX: N76.0 Acute vaginitis (principal); Z88.0 Allergy status to penicillin
CPT/HCPCS: 76857; 81003; 99284

== ENCOUNTER 2018-08-05 11:19 | Emergency (ER) | payer MEDICAID ==
[~2018-08-05] VITALS: Ht 170.2 cm; Wt 69.4 kg
[~2018-08-05 11:19] MED LIST changes: +LIDODERM700 M1 TOPIC; +METROGEL-VAGINA70 G1 VAGIN
--- NOTE | 2018-08-05 11:21 | NUR ---
ED Nurse Note:pt not in wr
[2018-08-05 11:22] VITALS: BP 124/75
--- NOTE | 2018-08-05 11:32 | NUR ---
ED Nurse Note: PT. AAOX4.AMBULATORY. CAME IN TO ER DUE TO COUGH, MUSCULAR CP AND FEVER X 1 WEEK.PT REPORTED TO HAVE GREENISH-YELLOWISH MUCUS.
--- NOTE | 2018-08-05 11:35 | Emergency Room Report ---
History of Present Illness General Chief Complaint: Upper Respiratory Illness Source: Patient Present Illness HPI Patient is a 63-year-old female presented after increased cough and congestion. Patient had recent upper respiratory illness. She had multiple sick contacts at home. Patient was noted to have increased cough as well as chest discomfort. She reports having worsening cough and shortness of breath. She is reports having frequent episodes of coughing which she noted to be nonproductive. She denies any severe weight loss. She reports having some subjective fevers at home.She denies any vomiting or diarrhea. Allergies: Coded Allergies: DOXYCYCLINE (Verified Allergy, Mild, 10/25/15) PENICILLINS (Verified Allergy, Mild, Hives, 02/06/12) Patient History Past Medical History: see triage record Last Menstrual Period: na Reviewed Nursing Documentation: PMH: Agreed; PSxH: Agreed Nursing Documentation-PMH Past Medical History: No History, Except For Review of Systems All Other Systems: negative except mentioned in HPI Physical Exam Vital Signs Date Time Temp Pulse Resp B/P (MAP) Pulse Ox O2 Delivery O2 Flow Rate FiO2 08/05/18 11:22 98.4 73 20 124/75 96 Room Air General Appearance: well appearing, no apparent distress, alert, GCS 15, thin Head: normocephalic, atraumatic ENT: hearing grossly normal, normal voice Neck: full range of motion, supple Respiratory: no respiratory distress, speaking full sentences, wheezing Cardiovascular #1: normal peripheral pulses, regular rate, rhythm, no edema Gastrointestinal: normal inspection Musculoskeletal: normal inspection, back normal, no calf tenderness Neurologic: normal inspection, alert, oriented x3, responsive, database management system specialist III-XII nml as tested, normal gait Psychiatric: mood/affect normal Skin: normal inspection, no rash Medical Decision Making Diagnostic Impression: Primary Impression: Upper respiratory infection ER Course Patient presented for cough. Differential diagnosis included but was not limited to bronchitis, pneumonia, pulmonary embolism, pericarditis, asthma, foreign body.Patient was noted to have some prior history of smoking. Patient was noted to have a productive cough. She was given prescription for antibiotics. Patient was noted to have chest x-ray without evident definite infiltrate. Patient was advised to follow-up with her primary care physician for recheck. EKG Diagnostic Results Rate: normal Rhythm: NSR ST Segments: no acute changes Last Vital Signs Date Time Temp Pulse Resp B/P (MAP) Pulse Ox O2 Delivery O2 Flow Rate FiO2 08/05/18 11:22 73 20 Room Air 08/05/18 11:22 98.4 124/75 96 Disposition: HOME, SELF-CARE Condition: Stable Scripts Azithromycin* (ZITHROMAX*) 250 Mg Tablet 250 MG ORAL DAILY, #6 TAB 0 Refills Take two tables once daily for 1 day, then one tablet once daily for 4 days. Prov: Man Arango MD 08/05/18 Man Arango MD Aug 05, 2018 11:35
--- NOTE | 2018-08-05 11:38 | NUR ---
ED Nurse Note: CONTACTED RT FOR BREATHING TX
[2018-08-05] MEDS ORDERED: Albuterol/Ipratropium 3ml neb HHN ONE (11:45)
--- NOTE | 2018-08-05 11:46 | NUR ---
ED Nurse Note: RT AT THE BEDSIDE
[2018-08-05] MEDS ORDERED: ZITHROMAX250 MG ORAL (13:17)
[2018-08-05 13:26] VITALS: BP 125/77
--- NOTE | 2018-08-05 13:26 | NUR ---
ER DISCHARGE NOTE: Patient is cleared to be discharged per ERMD, pt is aox4, on room air, with stable vital signs. pt was given dc and prescription instructions, pt was able to verbalize understanding, pt id band removed without complications. pt is able to ambulate with steady gait. pt took all belongings.
--- NOTE | 2018-08-06 09:33 | Diagnostic Imaging Report ---
Indication: Shortness of breath Technique: One view of the chest Comparison: none Findings: There is evidence of focal eventration of the left hemidiaphragm. Lungs and pleural spaces are clear. The heart size is normal Impression: No acute process
== END 2018-08-05 13:35 | disposition home or self-care (01) ==
LOC: EMR 12:22
DX: J06.9 Acute upper respiratory infection, unspecified (principal); Z88.0 Allergy status to penicillin; Z88.1 Allergy status to other antibiotic agents; R06.02 Shortness of breath
CPT/HCPCS: 71045; 94640; 94664; 99284; J7620

== ENCOUNTER 2018-08-12 13:17 | Emergency (ER) | payer MEDICAID ==
[~2018-08-12] VITALS: Ht 170.2 cm; Wt 69.4 kg
--- NOTE | 2018-08-12 13:32 | NUR ---
ED Nurse Note: PT WALKED IN TO ER TODAY FROM HOME. AOX4. PT C/O NONRADIATING, MEDIAL CHEST PAIN, 3/10 X 2-3 DAYS AGO. PT DENIES HEADACHE, NAUSEA, OR VOMITING. GAIT STEADY IN ER. BP 100/68 AT BEDSIDE AND NORMAL SINUS RHYTHM ON SUPERVISOR DRAPERY HANGING.
[2018-08-12 13:34] VITALS: BP 100/68
--- NOTE | 2018-08-12 13:34 | Emergency Room Report ---
History of Present Illness General Chief Complaint: Chest Pain Source: Patient Present Illness HPI Patient present with complaints of upper respiratory pathology including cough Patient reports that she has started to feel better after several days of azithromycin however the cough has persisted patient had some phlegm production as well Upon arrival there is a report of burning in her chest patient at this time essentially can she presented to her cough Denies any vomiting or diarrhea denies any fevers or chills denies any chest pain at this time or pleurisy denies any recent travel Allergies: Coded Allergies: DOXYCYCLINE (Verified Allergy, Mild, 10/25/15) PENICILLINS (Verified Allergy, Mild, Hives, 02/06/12) Patient History Past Medical History: see triage record Pertinent Family History: none Reviewed Nursing Documentation: PMH: Agreed; PSxH: Agreed Nursing Documentation-PMH Past Medical History: No History, Except For Review of Systems All Other Systems: negative except mentioned in HPI Physical Exam Vital Signs Date Time Temp Pulse Resp B/P (MAP) Pulse Ox O2 Delivery O2 Flow Rate FiO2 08/12/18 13:24 97.2 19 109/66 98 Room Air Sp02 EP Interpretation: reviewed, normal General Appearance: well appearing, no apparent distress Head: normocephalic, atraumatic Eyes: bilateral eye PERRL, bilateral eye EOMI ENT: hearing grossly normal, normal pharynx, TMs + canals normal, uvula midline Neck: full range of motion, supple, no meningismus, no bony tend Respiratory: lungs clear, normal breath sounds, no rhonchi, no respiratory distress, no retraction, no accessory muscle use Cardiovascular #1: normal peripheral pulses, regular rate, rhythm, no edema, no gallop, no JVD, no murmur Gastrointestinal: normal bowel sounds, non tender, soft, no mass, no organomegaly, non-distended, no guarding, no hernia, no pulsatile mass, no rebound Genitourinary: no CVA tenderness Musculoskeletal: normal inspection Neurologic: oriented x3, responsive, mortgage funder III-XII nml as tested, motor strength/ tone normal, sensory intact Psychiatric: mood/affect normal Skin: normal color, no rash, warm/dry, palpation normal Lymphatic: normal inspection, no adenopathy Medical Decision Making Diagnostic Impression: Primary Impression: Pneumonia ER Course Patient is a fairly benign medical evaluation Saturations appropriate lung sounds another exam appropriate patient has recent imaging Given some of the complaints EKG was done which does not show any obvious ST elevations At this time findings are consistent with atypical/clinical pneumonia patient initiated on antibiotics and requires close follow-up EKG Diagnostic Results Rate: normal Rhythm: NSR ST Segments: no acute changes Rhythm Strip Diag. Results EP Interpretation: yes Rate: 77 Rhythm: NSR, no PVC's, no ectopy Last Vital Signs Date Time Temp Pulse Resp B/P (MAP) Pulse Ox O2 Delivery O2 Flow Rate FiO2 08/12/18 13:24 97.2 19 109/66 98 Room Air Status: improved Disposition: HOME, SELF-CARE Condition: Improved Additional Instructions: Patient is provided with the discharge instructions notified to follow up with primary doctor in the next 2-3 days otherwise return to the er with any worsening symptoms. Please note that this report is being documented using [employer] technology. This can lead to erroneous entry secondary to incorrect interpretation by the dictating instrument. Buck Fernando DO Aug 12, 2018 13:34
[2018-08-12] MEDS ORDERED: LEVAQUIN750 MG ORAL (13:35)
[2018-08-12 13:42] VITALS: BP 104/72
--- NOTE | 2018-08-12 13:43 | NUR ---
ED Nurse Note: PT LAYING PEACEFULLY IN BED IN NAD. AOX4. PRESCRIPTION AND DISCHARGE PAPERWORK EXPLAINED TO PT. PT VERBALIZES UNDERSTANDING AND ALL QUESTIONS ANSWERED. PRESCRIPTION AND DISCHARGE PAPERWORK GIVEN TO PT AND ID WRISTBAND REMOVED. PT WALKED OUT OF ER WITH STEADY GAIT AND ALL BELONGINGS.
[2018-08-12] MEDS ORDERED: Levofloxacin 750mg tab ORAL ONE (13:45)
== END 2018-08-12 13:45 | disposition home or self-care (01) ==
LOC: EMR 13:40
DX: J18.9 Pneumonia, unspecified organism (principal); Z88.6 Allergy status to analgesic agent; Z88.8 Allergy status to other drugs, medicaments and biological substances
CPT/HCPCS: 99283

== ENCOUNTER 2019-01-27 09:26 | Emergency (ER) | payer MEDICAID ==
[~2019-01-27] VITALS: Ht 170.2 cm; Wt 66.7 kg
[~2019-01-27 09:26] MED LIST changes: +LEVAQUIN750 MG ORAL
[2019-01-27 09:41] VITALS: BP 106/72
--- NOTE | 2019-01-27 09:41 | NUR ---
ED Nurse Note: pt presents to ED c/o vaginal discharge. pt describes the discharge as being white/yellow with an odor that has started to irritate the labia, and also some mild lower back pain. pt denies any bleeding. 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 She also states that she has had this problem in the past and that the gel she was given helped.
--- NOTE | 2019-01-27 09:55 | Emergency Room Report ---
History of Present Illness General Chief Complaint: Female Urogenital Problems Source: Patient Present Illness HPI Patient presents with complaints of vaginal itching and mild discharge Denies any fevers or chills denies any chest pain denies any abdominal pain Denies any dysuria or frequency Patient had similar symptoms in June however at that time had lower abdominal pain reports that at this time she has no discomfort Denies any sexual activity denies any flank pain Allergies: Coded Allergies: DOXYCYCLINE (Verified Allergy, Mild, 10/25/15) PENICILLINS (Verified Allergy, Mild, Hives, 02/06/12) Patient History Past Medical History: see triage record Last Menstrual Period: n/a Reviewed Nursing Documentation: PMH: Agreed; PSxH: Agreed Nursing Documentation-PMH Past Medical History: No History, Except For Review of Systems All Other Systems: negative except mentioned in HPI Physical Exam Vital Signs Date Time Temp Pulse Resp B/P (MAP) Pulse Ox O2 Delivery O2 Flow Rate FiO2 01/27/19 09:33 98.2 67 18 106/72 (83) 96 Room Air Sp02 EP Interpretation: reviewed, normal General Appearance: well appearing, no apparent distress Head: normocephalic, atraumatic Eyes: bilateral eye PERRL, bilateral eye EOMI ENT: hearing grossly normal, normal pharynx Neck: supple Respiratory: lungs clear, no respiratory distress, no retraction Cardiovascular #1: regular rate, rhythm Gastrointestinal: non tender, soft Musculoskeletal: normal inspection Neurologic: alert, oriented x3, responsive Psychiatric: normal inspection Skin: no rash Lymphatic: no adenopathy Medical Decision Making Diagnostic Impression: Primary Impression: Vaginosis ER Course Given the patient's history and presentation multiple differentials and consideration including but not limited to vaginosis, vaginitis, STD Patient's clinical description and presentation is consistent with vaginosis further pelvic exam has not been performed in the emergency room given the clinical history And lack of any abdominal pain consideration for PID is low Patient is not sexually active And will have close outpatient follow-up with primary physician for further SURGICAL INSTRUMENT MAKER referral Last Vital Signs Date Time Temp Pulse Resp B/P (MAP) Pulse Ox O2 Delivery O2 Flow Rate FiO2 01/27/19 09:41 98.2 18 106/72 96 Room Air 01/27/19 09:33 67 Status: unchanged Disposition: HOME, SELF-CARE Condition: Stable Additional Instructions: Patient is provided with the discharge instructions notified to follow up with primary doctor in the next 2-3 days otherwise return to the er with any worsening symptoms. Please note that this report is being documented using [employer] technology. This can lead to erroneous entry secondary to incorrect interpretation by the dictating instrument. Buck Fernando DO Jan 27, 2019 09:55
[2019-01-27] MEDS ORDERED: METROGEL-VAGINA70 G1 VAGIN (09:56)
[2019-01-27 10:00] VITALS: BP 106/72
--- NOTE | 2019-01-27 10:00 | NUR ---
ED Nurse Note: Pt cleared by health care Provider for discharge. DC instructions/prescription was given and explained to pt and verbalized understanding of teachings. All medical deviecs such as ID band removed. Pt is AAO x4, ambulatory and left with all personal belongings.
== END 2019-01-27 10:00 | disposition home or self-care (01) ==
LOC: EMR 09:50
DX: N76.0 Acute vaginitis (principal); Z88.1 Allergy status to other antibiotic agents; Z88.0 Allergy status to penicillin
CPT/HCPCS: 99282

== ENCOUNTER 2019-02-14 16:34 | Emergency (ER) | payer MEDICAID ==
[~2019-02-14] VITALS: Ht 170.2 cm; Wt 73.5 kg
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
[2019-02-14 16:45] VITALS: BP 117/74
[2019-02-14] MEDS ORDERED: Omnipaque-300 100ml vial INJ PRN (17:00)
[2019-02-14 17:35] LABS: BASOPHILS % (AUTO) 1.5 % (0.0-2.0); HEMATOCRIT 36.7 % (37.0-47.0); HEMOGLOBIN 12.2 G/DL (12.0-16.0); LYMPHOCYTES % (AUTO) 42.9 % (20.0-45.0); MEAN CORPUSCULAR VOLUME 89 FL (80-99); MONOCYTES % (AUTO) 7.6 % (1.0-10.0); PLATELET COUNT 199 K/UL (150-450); RED BLOOD COUNT 4.11 M/UL (4.20-5.40); RED CELL DISTRIBUTION WIDTH 10.8 % (11.6-14.8); WHITE BLOOD COUNT 4.8 K/UL (4.8-10.8)
[2019-02-14 17:49] LABS: ANION GAP 11 mmol/L (5-15); BLOOD UREA NITROGEN 10 mg/dL (7-18); CALCIUM 8.8 MG/DL (8.5-10.1); CARBON DIOXIDE 26 MMOL/L (21-32); CHLORIDE 106 MMOL/L (98-107); CREATININE 0.7 MG/DL (0.55-1.30); POTASSIUM 3.8 MMOL/L (3.5-5.1); SODIUM 143 MMOL/L (136-145)
--- NOTE | 2019-02-14 17:58 | Diagnostic Imaging Report ---
Indications: Trauma, headache Technique: Spiral acquisitions obtained through the brain. Angled axial and coronal 5 x 5 mm slices were reconstructed. Total dose length product 1304 mGycm. CTDI vol(s) 60 mGy. Dose reduction achieved using automated exposure control Comparison: None. Findings: No acute intracranial hemorrhage or edema, mass effect, nor midline shift. Normal size ventricles and extra-axial CSF spaces. Normal escoto-white differentiation. Intact calvarium. Visualized orbits and sinuses are unremarkable. The mastoids are clear. Impression: Negative This agrees with the preliminary interpretation provided overnight by [facility] teleradiology service. The CT scanner at [facility] is accredited by the [employer] and the scans are performed using protocols designed to limit radiation exposure to as low as reasonably achievable to attain images of sufficient resolution adequate for diagnostic evaluation.
[2019-02-14 18:04] LABS: ALANINE AMINOTRANSFERASE 17 U/L (12-78); ALBUMIN 3.4 G/DL (3.4-5.0); ALBUMIN/GLOBULIN RATIO 1.2 (1.0-2.7); ALKALINE PHOSPHATASE 59 U/L (46-116); ASPARTATE AMINO TRANSFERASE 14 U/L (15-37); BILIRUBIN,TOTAL 0.4 MG/DL (0.2-1.0); CKMB 0.9 NG/ML (0.0-3.6); CREATINE KINASE 139 U/L (26-308)
[2019-02-14 18:15] LABS: APPEARANCE,URINE CLEAR; BILIRUBIN, URINE NEGATIVE (NEGATIVE); COLOR,URINE PALE YELLOW; GLUCOSE, URINE (UA) NEGATIVE (NEGATIVE); KETONES,URINE NEGATIVE (NEGATIVE); LEUKOCYTE ESTERASE ,URINE NEGATIVE (NEGATIVE); NITRITE,URINE NEGATIVE (NEGATIVE); PH,URINE 5 (4.5-8.0); PROTEIN,URINE NEGATIVE (NEGATIVE); UROBILINOGEN,URINE NORMAL MG/DL (0.0-1.0)
--- NOTE | 2019-02-14 19:01 | Diagnostic Imaging Report ---
Clinical Indication: Chest pain after suffering a fall 2 days ago Technique: IV administration nonionic contrast. Spiral acquisition obtained through the chest. Multiplanar reconstructions generated. Total dose length product 716 mGycm. CTDIvol(s) 37, 163, 14 mGy. Dose reduction achieved using automated exposure control Comparison: none Findings: The bones are unremarkable. No evidence of significant soft tissue contusion. The lungs demonstrate minimal bilateral left greater than right apical bullous changes as well as at the right lung base. Bands of atelectasis or scarring are seen at the lung bases. No infiltrates, effusions, congestion, masses, or nodules. No evidence of contusion or pneumothorax The heart size is borderline enlarged with evidence of right atrial and to lesser extent left atrial dilatation. No pericardial effusion. No mediastinal or hilar mass or adenopathy. Incidental finding of anatomic variant of separate origin of the left vertebral artery off of the aortic arch. The thyroid is unremarkable. No axillary or chest wall mass or adenopathy. The included upper abdominal anatomy is remarkable for the presence of multiple hepatic cysts. There are also multiple subcentimeter low-attenuation hepatic lesions which are too small to characterize Impression: No acute posttraumatic abnormality demonstrated. No evidence of fracture, pneumothorax, or contusion Evidence of mild bullous COPD Basilar atelectasis and/or scarring Hepatic cysts. Subcentimeter hepatic low-attenuation lesions which are too small to characterize, most likely benign simple cyst. No further follow-up necessary This agrees with the preliminary interpretation provided overnight by [facility] telerad[facility] service. The CT scanner at [facility] is accredited by the [employer] and the scans are performed using protocols designed to limit radiation exposure to as low as reasonably achievable to attain images of sufficient resolution adequate for diagnostic evaluation.
--- NOTE | 2019-02-14 19:06 | Emergency Room Report ---
History of Present Illness General Chief Complaint: Multiple Trauma/Fall Source: Medical Record Present Illness HPI 63-year-old female with history of heavy tobacco smoker here complaining of pain and pressure in chest x3 days. Patient reports that 3 nights ago she woke up and found herself on the floor and realized that she had head issue that was on the floor in the chest area. Denies any head injury however reports that is unsure whether she had a heart attack or stroke prior to fall. Patient reports that she has not had any blood work recently and does not know if she has a diagnosis of hypertension or diabetes. Rating the pain 10 out of 10 in the sternal area without radiation. Complains of minor shortness of breath. Denies tingling and numbness. Denies loss of consciousness, dizziness and headache. No signs of trauma noted on head or chest. Patient also complains that he had left shoulder surgery over a year ago and is having some pain over the site however has full range of motion. Denies abdominal pain, nausea or vomiting. No motor or sensory deficits noted. No facial droop is noted. Allergies: Coded Allergies: DOXYCYCLINE (Verified Allergy, Mild, 10/25/15) PENICILLINS (Verified Allergy, Mild, Hives, 02/06/12) Patient History Past Medical History: see triage record Past Surgical History: unable to obtain Pertinent Family History: none Social History: Reports: smoking Now: No Immunizations: UTD Reviewed Nursing Documentation: PMH: Agreed; PSxH: Agreed Nursing Documentation-PMH Past Medical History: No History, Except For Review of Systems All Other Systems: negative except mentioned in HPI Physical Exam Vital Signs Date Time Temp Pulse Resp B/P (MAP) Pulse Ox O2 Delivery O2 Flow Rate FiO2 02/14/19 16:37 98.4 72 18 117/74 (88) 95 Room Air Sp02 EP Interpretation: reviewed, normal General Appearance: no apparent distress, alert, GCS 15, non-toxic Head: normocephalic, atraumatic Eyes: bilateral eye normal inspection, bilateral eye PERRL ENT: hearing grossly normal, normal pharynx, no angioedema, normal voice Neck: full range of motion, supple/symm/no masses Respiratory: chest non-tender, lungs clear, normal breath sounds, no rhonchi, no respiratory distress, no retraction, no wheezing, speaking full sentences Cardiovascular #1: regular rate, rhythm, no edema, no murmur, normal capillary refill Cardiovascular #2: 2+ carotid (R), 2+ carotid (L), 2+ radial (R), 2+ radial (L) Gastrointestinal: normal bowel sounds, non tender, soft, non-distended, no guarding, no rebound Rectal: deferred Genitourinary: normal inspection, no CVA tenderness Musculoskeletal: back normal, digits/nails normal, gait/station normal, normal range of motion, non-tender, no calf tenderness, pelvis stable Neurologic: alert, oriented x3, responsive, motor strength/tone normal, sensory intact, speech normal Psychiatric: judgement/insight normal, memory normal, mood/affect normal, no suicidal/homicidal ideation Skin: no rash, other - No eccymosis noted Lymphatic: no adenopathy Medical Decision Making PA Attestation All diagnoses and treatment plans were reviewed and discussed with my supervising physician Dr. Uribe Diagnostic Impression: Primary Impression: Chest wall contusion ER Course 63-year-old female with history of heavy tobacco smoker here complaining of pain and pressure in chest x3 days. Patient reports that 3 nights ago she woke up and found herself on the floor and realized that she had head issue that was on the floor in the chest area. Denies any head injury however reports that is unsure whether she had a heart attack or stroke prior to fall. Patient reports that she has not had any blood work recently and does not know if she has a diagnosis of hypertension or diabetes. Rating the pain 10 out of 10 in the sternal area without radiation. Complains of minor shortness of breath. Denies tingling and numbness. Denies loss of consciousness, dizziness and headache. No signs of trauma noted on head or chest. Patient also complains that he had left shoulder surgery over a year ago and is having some pain over the site however has full range of motion. Denies abdominal pain, nausea or vomiting. No motor or sensory deficits noted. No facial droop is noted. Ddx considered but are not limited to: cerebral hematoma, concussion, skull fracture, head contusion, pneumothorax, rib fracture, SC, TIA, CVA Vital signs: are WNL, pt. is afebrile H&PE are most consistent with: Chest contusion, ORDERS: head CT no contrast, chest CT scan no contrast, chest pain set , ibuprofen ED INTERVENTIONS: NS bolus DISCHARGE: At this time pt. is stable for d/c to home. Will provide printed patient care instructions, and any necessary prescriptions. Care plan and follow up instructions have been discussed with the patient prior to discharge. Take medication as directed, follow-up with your primary care provider, if worsening symptoms return to emergency room EKG Diagnostic Results Rate: normal Rhythm: NSR ST Segments: no acute changes Other Impression no acute ST changes Chest X-Ray Diagnostic Results Chest X-Ray Diagnostic Results : Chest X-Ray Ordered: Yes # of Views/Limited/Complete: 1 View Indication: Chest Pain EP Interpretation: Yes RIN Xray: Interpretation reviewed, by supervising MD, and agrees with findings. Interpretation: no consolidation, no effusion, no pneumothorax Impression: No acute disease Electronically Signed by: Mariya Martinez PA-C CT/MRI/US Diagnostic Results CT/MRI/US Diagnostic Results #1: Imaging Test Ordered: Head CT no contrast Impression Within normal limits, no intracranial hemorrhage, no skull fracture CT/MRI/US Diagnostic Results #2: Imaging Test Ordered: Chest CT with contrast Impression CT CHEST With Contrast: No acute fracture or pneumothorax. No major vascular injury. Last Vital Signs Date Time Temp Pulse Resp B/P (MAP) Pulse Ox O2 Delivery O2 Flow Rate FiO2 02/14/19 16:45 72 18 Room Air 02/14/19 16:45 98.4 117/74 95 Disposition: HOME, SELF-CARE Condition: Stable Scripts No Active Prescriptions or Reported Meds Referrals: NON PHYSICIAN (PCP) Patient Instructions: Chest Contusion, [id number] Additional Instructions: Take medication as directed, follow-up with your primary care provider. If worsening symptoms return to emergency room. Avoid strenuous physical activity Mariya Busby Feb 14, 2019 19:06
--- NOTE | 2019-02-14 19:08 | NUR ---
HAND-OFF: Report given to MIKAELA Smalls.
[2019-02-14] MEDS ORDERED: IBU800 MG PO (19:09)
[2019-02-14 19:22] VITALS: BP 117/74
--- NOTE | 2019-02-14 19:22 | NUR ---
ER DISCHARGE NOTE: Patient is cleared to be discharged per ERMD, pt is aox4, on room air, with stable vital signs. pt was given dc and prescription instructions, pt was able to verbalize understanding, pt id band and iv site removed without complications. pt is able to ambulate with steady gait. pt took all belongings.
--- NOTE | 2019-02-15 09:32 | Diagnostic Imaging Report ---
Indication: Chest pain Technique: One view of the chest Comparison: 08/05/2018 Findings: Lungs and pleural spaces are clear. Apparent lobulation of the left hemidiaphragm is demonstrated on prior CT scan to represent a fat-containing Bochdalek hernia. The heart size is normal. Impression: No acute process
== END 2019-02-14 19:23 | disposition home or self-care (01) ==
LOC: EMR 17:00
DX: S20.219A Contusion of unspecified front wall of thorax, initial encounter (principal); F17.200 Nicotine dependence, unspecified, uncomplicated; Z88.0 Allergy status to penicillin; Z88.1 Allergy status to other antibiotic agents; R51 Headache; W19.XXXA Unspecified fall, initial encounter; Y92.009 Unspecified place in unspecified non-institutional (private) residence as the place of occurrence of the external cause
CPT/HCPCS: 36415; 70450; 71045; 71260; 80053; 80307; 81003; 82550; 82553; 83880; 84484; 85025; 86850; 86900; 86901; 93005; Q9967; Z7502; 99284

== ENCOUNTER 2019-03-22 14:32 | Emergency (ER) | payer MEDICAID ==
[~2019-03-22] VITALS: Ht 170.2 cm; Wt 71.2 kg
[~2019-03-22 14:32] MED LIST changes: +IBU800 MG PO
[2019-03-22 14:41] VITALS: BP 107/92
[2019-03-22 14:59] VITALS: BP 107/92
--- NOTE | 2019-03-22 15:00 | NUR ---
ED Nurse Note: pt.AAOx4. ambulatory.pt walked in to er from home. per pt., she has been having burning sensation during urination, increase in urinary frequency, foul smell, back pain, groin pain, vaginal pain x 1 week
[2019-03-22] MEDS ORDERED: BACTRIM DS TAB1 EAC1 ORAL (15:09)
[2019-03-22] MEDS ORDERED: PHENAZOPYRIDIN200 MG ORAL (15:09)
--- NOTE | 2019-03-22 15:10 | Emergency Room Report ---
History of Present Illness General Chief Complaint: Female Urogenital Problems Source: Patient Present Illness HPI 63-year-old female presents with dysuria x4 days no fevers no chills, she endorses some vague back pain that she has had chronically, patient states that she has an appointment this coming week to have a full work-up done and possible referral to [facility] given the fact she keeps having recurrent bladder infections may be amenable to pessary, no nausea no vomiting she endorses some sharp burning urination and some suprapubic pain no aggravating relieving factors severity is mild patient presents for evaluation Allergies: Coded Allergies: DOXYCYCLINE (Verified Allergy, Mild, 10/25/15) PENICILLINS (Verified Allergy, Mild, Hives, 02/06/12) Patient History Past Medical History: see triage record Social History: Reports: smoking Reviewed Nursing Documentation: PMH: Agreed; PSxH: Agreed Review of Systems All Other Systems: negative except mentioned in HPI Physical Exam Vital Signs Date Time Temp Pulse Resp B/P (MAP) Pulse Ox O2 Delivery O2 Flow Rate FiO2 03/22/19 14:41 98.2 81 17 107/92 (97) 95 Room Air General Appearance: well appearing, no apparent distress Head: normocephalic, atraumatic Eyes: bilateral eye PERRL, bilateral eye EOMI ENT: hearing grossly normal, normal voice Neck: full range of motion, supple Respiratory: no respiratory distress, speaking full sentences Gastrointestinal: soft, tenderness - mild suprapubic tenderness Genitourinary: other - no cva tenderness Musculoskeletal: no calf tenderness Neurologic: alert, normal gait Psychiatric: mood/affect normal Skin: no rash Medical Decision Making Diagnostic Impression: Primary Impression: Acute UTI ER Course Patient with UTI, ddx includes pyelo, diverticulitis, appendicitis -abx -follow-up with pcp -follow-up with middle school teacher Last Vital Signs Date Time Temp Pulse Resp B/P (MAP) Pulse Ox O2 Delivery O2 Flow Rate FiO2 03/22/19 14:41 98.2 81 17 107/92 95 Room Air Disposition: HOME, SELF-CARE Condition: Stable Scripts Trimethoprim/Sulfamethoxazole 160/800* (BACTRIM DS TABLET*) 1 Each Tablet 1 TAB ORAL Q12H, #14 TAB 0 Refills Prov: Gerald Mason MD 03/22/19 Phenazopyridine Hcl* (PYRIDIUM*) 200 Mg Tablet 200 MG ORAL BID PRN for bladder spasm, #10 TAB 0 Refills Prov: Gerald Mason MD 03/22/19 Referrals: [facility]. [facility] Patient Instructions: Urinary Tract Infection Additional Instructions: The patient was provided with discharge instructions, notified to follow-up with a primary care doctor and or specialist in the next 24-48 hours, and to return to the ED if they have worsening of their symptoms. Please note that this report is being documented using [employer] technology. This can lead to erroneous entry secondary to incorrect interpretation by the dictating instrument. Gerald Mason MD Mar 22, 2019 15:10
[2019-03-22 15:12] LABS: APPEARANCE,URINE CLEAR; BILIRUBIN, URINE NEGATIVE (NEGATIVE); GLUCOSE, URINE (UA) NEGATIVE (NEGATIVE); KETONES,URINE 1+ (NEGATIVE); LEUKOCYTE ESTERASE ,URINE 1+ (NEGATIVE); NITRITE,URINE NEGATIVE (NEGATIVE); PH,URINE 5 (4.5-8.0); PROTEIN,URINE NEGATIVE (NEGATIVE); UROBILINOGEN,URINE NORMAL MG/DL (0.0-1.0)
[2019-03-22] MEDS ORDERED: Bactrim-DS 1 tab ORAL ONE (15:15)
[2019-03-22 15:17] LABS: COLOR,URINE YELLOW
--- NOTE | 2019-03-22 15:19 | NUR ---
ER DISCHARGE NOTE: Patient is cleared to be discharged per ERMD, pt is aox4, on room air, with stable vital signs. pt was given dc and prescription instructions, pt was able to verbalize understanding, pt id band removed. pt is able to ambulate with steady gait. pt took all belongings.
== END 2019-03-22 15:20 | disposition home or self-care (01) ==
LOC: EMR 15:10
DX: N39.0 Urinary tract infection, site not specified (principal); F17.200 Nicotine dependence, unspecified, uncomplicated; Z88.0 Allergy status to penicillin; Z88.1 Allergy status to other antibiotic agents
CPT/HCPCS: 81003; Z7502; 99283

== ENCOUNTER 2019-09-18 21:40 | Emergency (ER) | payer MEDICAID ==
[~2019-09-18] VITALS: Ht 170.2 cm; Wt 76.7 kg
[2019-09-18 21:56] VITALS: BP 94/65
--- NOTE | 2019-09-18 21:56 | NUR ---
ED Nurse Note: pt in restroom obtaining urine sample
[2019-09-18] MEDS ORDERED: PHENAZOPYRIDIN200 MG ORAL (22:03)
[2019-09-18] MEDS ORDERED: CEPHALEXIN500 MG ORAL (22:03)
--- NOTE | 2019-09-18 22:03 | Emergency Room Report ---
History of Present Illness General Chief Complaint: Female Urogenital Problems Source: Patient Present Illness [facility] This is a 64-year-old female with no significant past medical history. She presents with chief complaint of UTI symptoms. She has dysuria, frequency and urgency for about a week. Initially was improved with Pyridium that she had leftover from her last infection. She gets frequent urinary tract infection. She has no nausea vomiting or diarrhea. Beginning to have back pain is tracking up. Pain is 8 out of 10. Worse with urination. Better with rest. Denies any fever. Allergies: Coded Allergies: DOXYCYCLINE (Verified Allergy, Mild, 10/25/15) PENICILLINS (Verified Allergy, Mild, Hives, 02/06/12) COVID-19 Screening Contact w/high risk pt: No Recent Travel to affected area: No Experienced COVID-19 symptoms?: No COVID-19 Testing performed VOCATIONAL NURSING INSTRUCTOR: No Patient History Past Medical History: see triage record, old chart reviewed Past Surgical History: none Pertinent Family History: none Social History: Denies: smoking Now: No Immunizations: other Reviewed Nursing Documentation: PMH: Agreed; PSxH: Agreed Nursing Documentation-PMH Past Medical History: No History, Except For Review of Systems Eye: Denies: eye pain, blurred vision ENT: Denies: ear pain, nose congestion, throat swelling Respiratory: Denies: cough, shortness of breath Cardiovascular: Denies: chest pain, palpitations Gastrointestinal: Denies: abdominal pain, diarrhea, nausea, vomiting Genitourinary: Reports: dysuria, frequency, urgency Musculoskeletal: Denies: back pain, joint pain Skin: Denies: rash Neurological: Denies: headache, numbness Endocrine: Denies: increased thirst, increased urine Hematologic/Lymphatic: Denies: easy bruising All Other Systems: negative except mentioned in HPI Physical Exam Vital Signs Date Time Temp Pulse Resp B/P (MAP) Pulse Ox O2 Delivery O2 Flow Rate FiO2 09/18/19 21:49 97.5 78 18 94/65 (75) 100 Room Air Vitals normal Sp02 EP Interpretation: reviewed, normal General Appearance: well appearing, no apparent distress, alert Head: normocephalic, atraumatic Eyes: bilateral eye PERRL, bilateral eye EOMI ENT: hearing grossly normal, normal pharynx Neck: full range of motion, supple, no meningismus Respiratory: chest non-tender, lungs clear, normal breath sounds Cardiovascular #1: regular rate, rhythm, no murmur Gastrointestinal: normal bowel sounds, non tender, no mass, no organomegaly, no bruit, non-distended Musculoskeletal: back normal, normal range of motion, gait/station normal Psychiatric: mood/affect normal Medical Decision Making Diagnostic Impression: Primary Impression: Urinary tract infection Qualified Codes: N30.00 - Acute cystitis without hematuria ER Course Patient with symptoms consistent with UTI. No evidence of any pyelonephritis or sepsis or pneumonia. She looks well. Will discharge home. Last Vital Signs Date Time Temp Pulse Resp B/P (MAP) Pulse Ox O2 Delivery O2 Flow Rate FiO2 09/18/19 21:56 97.5 18 94/65 100 Room Air 09/18/19 21:49 78 Disposition: HOME, SELF-CARE Condition: Stable Scripts Phenazopyridine Hcl* (PYRIDIUM*) 200 Mg Tablet 200 MG ORAL THREE TIMES A DAY, #14 TAB 0 Refills Prov: Mateus Altamirano MD 09/18/19 Cephalexin* (KEFLEX*) 500 Mg Capsule 500 MG ORAL TID, #21 CAP Prov: Mateus Altamirano MD 09/18/19 Patient Instructions: Urinary Tract Infection Additional Instructions: Follow up with your doctor in 3-5 days if not better. Return if worse. Mateus Altamirano MD September 18, 2019 22:03
--- NOTE | 2019-09-18 22:05 | NUR ---
ED Nurse Note: ERMD at bedside
[2019-09-18] MEDS ORDERED: Cephalexin 500mg cap ONE (22:09)
[2019-09-18 22:10] VITALS: BP 94/65
--- NOTE | 2019-09-18 22:10 | NUR ---
ER DISCHARGE NOTE: Patient is cleared to be discharged home per ERMD, pt is aox4, on room air, with stable vital signs. pt was given dc and prescription instructions, pt was able to verbalize understanding, pt id band removed. pt is able to ambulate with steady gait. pt took all belongings.
[2019-09-18] MEDS ORDERED: Cephalexin 500mg cap ORAL ONE (22:15)
== END 2019-09-18 22:10 | disposition home or self-care (01) ==
LOC: EMR 22:04
DX: N30.00 Acute cystitis without hematuria (principal); Z88.0 Allergy status to penicillin
CPT/HCPCS: 87086; Z7502; 99282

== ENCOUNTER 2019-10-01 16:48 | Emergency (ER) | payer MEDICAID ==
[~2019-10-01] VITALS: Ht 170.2 cm; Wt 73.5 kg
[2019-10-01 17:10] VITALS: BP 94/52
--- NOTE | 2019-10-01 17:15 | NUR ---
ED Nurse Note: patient walked into ED c/o urinary hesitancy and burning urination for about 4 days now. patient is alert and oriented x4, ambulatory with a steady gait, patient states that she was recently seen here last week for the same reasons and have found relief with cipro however has reported no complete resolution of symptoms. urine sent down to lab. will wait for further orders
--- NOTE | 2019-10-01 18:18 | Emergency Room Report ---
History of Present Illness General Chief Complaint: Female Urogenital Problems Source: Patient Present Illness HPI 64-year-old female with history of recurrent UTI here complaining of urinary frequency and urgency as well as dysuria that started few days ago. Patient reports that ciprofloxacin usually works for her the best that she has recurrences of UTI. Denies any fever and chills, lower back pain, nausea vomiting. Sitting comfortably with stable vital signs. Denies chest pain, shortness of breath, headache or dizziness. Denies vaginal discharge. Denies recent sexual encounter. Allergies: Coded Allergies: DOXYCYCLINE (Verified Allergy, Mild, 10/25/15) PENICILLINS (Verified Allergy, Mild, Hives, 02/06/12) COVID-19 Screening Contact w/high risk pt: No Recent Travel to affected area: No Experienced COVID-19 symptoms?: No COVID-19 Testing performed POT TENDER: No Patient History Past Medical History: see triage record Past Surgical History: none Pertinent Family History: none Last Menstrual Period: n/a Now: No Immunizations: UTD Reviewed Nursing Documentation: PMH: Agreed; PSxH: Agreed Nursing Documentation-PMH Past Medical History: No History, Except For Review of Systems All Other Systems: negative except mentioned in HPI Physical Exam Vital Signs Date Time Temp Pulse Resp B/P (MAP) Pulse Ox O2 Delivery O2 Flow Rate FiO2 10/01/19 17:07 99.0 80 18 94/58 (70) 97 Room Air Sp02 EP Interpretation: reviewed, normal General Appearance: no apparent distress, alert, GCS 15, non-toxic Head: normocephalic, atraumatic Eyes: bilateral eye normal inspection, bilateral eye PERRL ENT: hearing grossly normal, normal pharynx, no angioedema, normal voice Neck: full range of motion, supple/symm/no masses Respiratory: chest non-tender, lungs clear, normal breath sounds, speaking full sentences Cardiovascular #1: regular rate, rhythm, no edema Gastrointestinal: normal bowel sounds, non tender, soft, non-distended, no guarding, no rebound Genitourinary: no CVA tenderness Musculoskeletal: back normal Neurologic: alert, motor strength/tone normal, oriented x3, sensory intact, responsive, speech normal Psychiatric: judgement/insight normal, memory normal, mood/affect normal, no suicidal/homicidal ideation Skin: no rash Lymphatic: no adenopathy Medical Decision Making PA Attestation All my diagnosis and treatment plans were reviewed ad discussed with my supervising physician Dr. Candelaria Diagnostic Impression: Primary Impression: UTI (urinary tract infection) ER Course 64-year-old female with history of recurrent UTI here complaining of urinary frequency and urgency as well as dysuria that started few days ago. Patient reports that ciprofloxacin usually works for her the best that she has recurrences of UTI. Denies any fever and chills, lower back pain, nausea vomiting. Sitting comfortably with stable vital signs. Denies chest pain, shortness of breath, headache or dizziness. Denies vaginal discharge. Denies recent sexual encounter. Ddx considered but are not limited to: UTI, pyelonephritis, urinary incontinence , prolapsed bladder Vital signs: are WNL, pt. is afebrile H&PE are most consistent with: UTI ORDERS: UA, urine cx, ciprofloxacin, Pyridium ED INTERVENTIONS: None required at this time. DISCHARGE: At this time pt. is stable for d/c to home. Will provide printed patient care instructions, and any necessary prescriptions. Care plan and follow up instructions have been discussed with the patient prior to discharge. Increase oral hydration, take medication as directed, follow primary doctor, if worsening symptoms return to the emergency room Last Vital Signs Date Time Temp Pulse Resp B/P (MAP) Pulse Ox O2 Delivery O2 Flow Rate FiO2 10/01/19 17:07 99.0 80 18 94/58 (70) 97 Room Air Disposition: HOME, SELF-CARE Condition: Stable Scripts Phenazopyridine Hcl* (PYRIDIUM*) 200 Mg Tablet 200 MG ORAL THREE TIMES A DAY for 2 Days, #6 TAB 0 Refills Prov: Mariya Busby 10/01/19 Ciprofloxacin* (CIPRO*) 500 Mg Tablet 500 MG PO BID for 7 Days, #14 TAB Prov: Mariya Busby 10/01/19 Referrals: NON PHYSICIAN (PCP) Patient Instructions: Urinary Tract Infection Additional Instructions: Take medication as directed, follow primary doctor, if worsening symptoms return to the emergency room Mariya Busby Oct 01, 2019 18:18
[2019-10-01] MEDS ORDERED: CIPRO500 MG PO (18:20)
[2019-10-01] MEDS ORDERED: PHENAZOPYRIDIN200 MG ORAL (18:20)
[2019-10-01] MEDS ORDERED: Ciprofloxacin 500mg tab ONE (18:43)
[2019-10-01 18:45] VITALS: BP 94/52
[2019-10-01] MEDS ORDERED: Ciprofloxacin 500mg tab ORAL ONE (18:45)
[2019-10-01 18:49] LABS: APPEARANCE,URINE CLEAR; GLUCOSE, URINE (UA) NEGATIVE (NEGATIVE); KETONES,URINE NEGATIVE (NEGATIVE); NITRITE,URINE NEGATIVE (NEGATIVE); PH,URINE 5 (4.5-8.0); PROTEIN,URINE 2+ (NEGATIVE)
[2019-10-01 18:58] LABS: COLOR,URINE ORANGE
[2019-10-01 18:59] LABS: BILIRUBIN, URINE NEGATIVE (NEGATIVE); LEUKOCYTE ESTERASE ,URINE NEGATIVE (NEGATIVE); UROBILINOGEN,URINE NORMAL MG/DL (0.0-1.0)
== END 2019-10-01 18:45 | disposition home or self-care (01) ==
LOC: EMR 17:00
DX: N39.0 Urinary tract infection, site not specified (principal); Z88.0 Allergy status to penicillin
CPT/HCPCS: 81003; J7040; Z7502; 99282

== ENCOUNTER 2019-10-14 15:36 | Emergency (ER) | payer MEDICAID ==
[~2019-10-14] VITALS: Ht 170.2 cm; Wt 71.2 kg
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
[2019-10-14] MEDS ORDERED: Methocarbamol 750mg tab ORAL ONE (16:15)
[2019-10-14] MEDS ORDERED: Ketorolac 30mg Inj IM ONE (16:15)
--- NOTE | 2019-10-14 16:24 | NUR ---
ED Nurse Note: pt in radiology dept.
[2019-10-14 16:45] VITALS: BP 100/68
--- NOTE | 2019-10-14 16:50 | NUR ---
ED Nurse Note:pt back from radiology
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
--- NOTE | 2019-10-14 17:04 | Diagnostic Imaging Report ---
EXAM: X-RAY XRAY Hand Complete L CLINICAL HISTORY: Trauma and hand pain. COMPARISON: None FINDINGS: Total of 3 views of the hand were obtained. There is mild diffuse osteopenia. There is no fracture, bony lesions or erosions. Joint spaces are unremarkable. Surrounding soft tissue is normal. IMPRESSION: DIFFUSE OSTEOPENIA. NO FRACTURE.
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
[2019-10-14] MEDS ORDERED: IBUPROFEN600 M1 ORAL (17:08)
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
== END 2019-10-14 17:45 | disposition home or self-care (01) ==
LOC: EMR 17:03
DX: S40.012A Contusion of left shoulder, initial encounter (principal); S20.212A Contusion of left front wall of thorax, initial encounter; S60.212A Contusion of left wrist, initial encounter; V03.90XA Pedestrian on foot injured in collision with car, pick-up truck or van, unspecified whether traffic or nontraffic accident, initial encounter; Y92.9 Unspecified place or not applicable; Z88.0 Allergy status to penicillin; K76.89 Other specified diseases of liver; M85.842 Other specified disorders of bone density and structure, left hand
CPT/HCPCS: 71250; 73030; 73080; 73110; 73130; 96372; J1885; Z7502; 99284

== ENCOUNTER 2019-10-24 06:25 | Emergency (ER) | payer MEDICAID ==
[~2019-10-24] VITALS: Ht 170.2 cm; Wt 73.5 kg
[~2019-10-24 06:25] MED LIST changes: +IBUPROFEN600 M1 ORAL
[2019-10-24 06:30] VITALS: BP 112/73
--- NOTE | 2019-10-24 07:01 | Emergency Room Report ---
History of Present Illness General Chief Complaint: Female Urogenital Problems Source: Patient Present Illness HPI 64-year-old female presents for dysuria. States she was seen here recently for this. Was prescribed antibiotics. States she completed the prescription and symptoms improved but then then they came back. Denies hematuria. Denies flank pain. Denies nausea or vomiting. No other aggravating relieving factors. Denies any other associated symptoms Allergies: Coded Allergies: DOXYCYCLINE (Verified Allergy, Mild, 10/25/15) PENICILLINS (Verified Allergy, Mild, Hives, 02/06/12) COVID-19 Screening Contact w/high risk pt: No Recent Travel to affected area: No Experienced COVID-19 symptoms?: No COVID-19 Testing performed LODGE OFFICER: No Patient History Past Medical History: none Past Surgical History: none Pertinent Family History: none Social History: Denies: smoking, alcohol use, drug use Now: No Immunizations: UTD Reviewed Nursing Documentation: PMH: Agreed; PSxH: Agreed Review of Systems All Other Systems: negative except mentioned in HPI Physical Exam Vital Signs Date Time Temp Pulse Resp B/P (MAP) Pulse Ox O2 Delivery O2 Flow Rate FiO2 10/24/19 06:28 98.2 73 19 112/73 (86) 97 Room Air Sp02 EP Interpretation: reviewed, normal General Appearance: no apparent distress, alert, GCS 15, non-toxic Head: normocephalic, atraumatic Eyes: bilateral eye normal inspection, bilateral eye PERRL ENT: hearing grossly normal, normal pharynx, no angioedema, normal voice Neck: full range of motion, supple/symm/no masses Respiratory: chest non-tender, lungs clear, normal breath sounds, speaking full sentences Cardiovascular #1: regular rate, rhythm, no edema Cardiovascular #2: 2+ carotid (R), 2+ carotid (L), 2+ radial (R), 2+ radial (L) , 2+ dorsalis pedis (R), 2+ dorsalis pedis (L) Gastrointestinal: normal bowel sounds, non tender, soft, non-distended, no guarding, no rebound Rectal: deferred Genitourinary: normal inspection, no CVA tenderness Musculoskeletal: back normal, normal range of motion, gait/station normal, non- tender Neurologic: alert, motor strength/tone normal, oriented x3, sensory intact, responsive, speech normal Psychiatric: judgement/insight normal, memory normal, mood/affect normal, no suicidal/homicidal ideation Reflexes: 3+ bicep (R), 3+ bicep (L), 3+ tricep (R), 3+ tricep (L), 3+ knee (R) , 3+ knee (L) Lymphatic: no adenopathy Medical Decision Making Diagnostic Impression: Primary Impression: Dysuria ER Course Hospital Course 64-year-old female presents to ED complaining of dysuria with suprapubic pain. Differential diagnoses include: UTI, cystitis, pyelonephritis Clinical course Patient placed on stretcher. After initial history and physical I ordered UA UA with no bacteria. Few blood. I discussed findings with patient. Not specific for urinary tract infection. I recommend CT. Patient declined CT stating that her symptoms previously improved with antibiotics and would like to try to her another round. States that if her symptoms do not improve she will return to ED for a CT. Diagnosis - dysuria Stable and discharged home with prescriptions for Rx bactrim, pyridium. Instructed to followup with PMD. Return to ED if symptoms recur or worsen Labs Test 10/24/19 06:42 Urine Color Yellow Urine Appearance Clear Urine pH 5 (4.5-8.0) Urine Specific [place] 1.025 (1.005-1.035) Urine Protein Negative (NEGATIVE) Urine Glucose (UA) Negative (NEGATIVE) Urine Ketones Negative (NEGATIVE) Urine Blood 1+ (NEGATIVE) Urine Nitrite Negative (NEGATIVE) Urine Bilirubin Negative (NEGATIVE) Urine Urobilinogen Normal MG/DL (0.0-1.0) Urine Leukocyte Esterase Negative (NEGATIVE) Urine RBC 0-2 /HPF (0 - 2) Urine WBC 0-2 /HPF (0 - 2) Urine Squamous Epithelial Cells Few /LPF (NONE/OCC) Urine Bacteria Few /HPF (NONE) Last Vital Signs Date Time Temp Pulse Resp B/P (MAP) Pulse Ox O2 Delivery O2 Flow Rate FiO2 10/24/19 06:30 98.2 73 19 112/73 97 Room Air Status: improved Disposition: HOME, SELF-CARE Condition: Stable Scripts Phenazopyridine Hcl* (PYRIDIUM*) 100 Mg Tablet 100 MG ORAL THREE TIMES A DAY, #10 TAB Prov: Emmanuel Hendrickson MD 10/24/19 Trimethoprim/Sulfamethoxazole 160/800* (BACTRIM DS TABLET*) 1 Each Tablet 1 TAB ORAL Q12H, #14 TAB 0 Refills Prov: Emmanuel Hendrickson MD 10/24/19 Emmanuel Hendrickson MD Oct 24, 2019 07:01
[2019-10-24 07:10] LABS: APPEARANCE,URINE CLEAR; BILIRUBIN, URINE NEGATIVE (NEGATIVE); GLUCOSE, URINE (UA) NEGATIVE (NEGATIVE); KETONES,URINE NEGATIVE (NEGATIVE); LEUKOCYTE ESTERASE ,URINE NEGATIVE (NEGATIVE); NITRITE,URINE NEGATIVE (NEGATIVE); PH,URINE 5 (4.5-8.0); PROTEIN,URINE NEGATIVE (NEGATIVE); UROBILINOGEN,URINE NORMAL MG/DL (0.0-1.0)
[2019-10-24 07:11] LABS: COLOR,URINE YELLOW
[2019-10-24] MEDS ORDERED: BACTRIM DS TAB1 EAC1 ORAL (07:59)
[2019-10-24] MEDS ORDERED: PHENAZOPYRIDIN100 MG ORAL (07:59)
[2019-10-24 08:00] VITALS: BP 116/74
[2019-10-24] MEDS ORDERED: Bactrim-DS 1 tab ORAL ONE (08:00)
== END 2019-10-24 08:00 | disposition home or self-care (01) ==
LOC: EMR 07:00
DX: R30.0 Dysuria (principal); Z88.0 Allergy status to penicillin; Z88.1 Allergy status to other antibiotic agents
CPT/HCPCS: 81003; 99283

== ENCOUNTER 2019-12-04 19:18 | Emergency (ER) | payer MEDICAID ==
[~2019-12-04] VITALS: Ht 170.2 cm; Wt 73.9 kg
--- NOTE | 2019-12-04 19:39 | NUR ---
ED Nurse Note: Pt ambulated to ED from home c/o burning with urination as well as lower back/flank pain for several days, pt has a hx of UTI's. Denies Fever at home, VSS, PT is A&OX4, ERMD at bedside
[2019-12-04 19:41] VITALS: BP 99/67
[2019-12-04] MEDS ORDERED: Levofloxacin 500mg tab ORAL ONE (19:45)
--- NOTE | 2019-12-04 19:47 | Emergency Room Report ---
History of Present Illness General Chief Complaint: Female Urogenital Problems Source: Patient Present Illness HPI 64-year-old female with history of recurrent UTI here complaining of urinary frequency and urgency and dysuria x2 days. Patient requesting something in fluoroquinolone family as patient be tested and decided that this will be directly biotic for her. Patient still looking for a new practitioner as PCP. Denies any fever and chills, flank pain, abdominal pain nausea or vomiting. Has been taking Azo with minimal symptom relief. Patient has been seen at [facility] multiple times for recurrences of UTI. Denies being sexually active , denies any vaginal discharge. Allergies: Coded Allergies: DOXYCYCLINE (Verified Allergy, Mild, 10/25/15) PENICILLINS (Verified Allergy, Mild, Hives, 02/06/12) COVID-19 Screening Contact w/high risk pt: No Recent Travel to affected area: No Experienced COVID-19 symptoms?: No COVID-19 Testing performed BORDER GUARD: No Patient History Past Medical History: see triage record Past Surgical History: none Pertinent Family History: none Now: No Immunizations: UTD Reviewed Nursing Documentation: PMH: Agreed; PSxH: Agreed Review of Systems All Other Systems: negative except mentioned in HPI Physical Exam Vital Signs Date Time Temp Pulse Resp B/P (MAP) Pulse Ox O2 Delivery O2 Flow Rate FiO2 12/04/19 19:22 98.4 82 19 99/67 (78) 94 Room Air Sp02 EP Interpretation: reviewed, normal General Appearance: no apparent distress, alert, GCS 15, non-toxic Head: normocephalic, atraumatic Eyes: bilateral eye normal inspection, bilateral eye PERRL ENT: hearing grossly normal, normal pharynx, no angioedema, normal voice Neck: full range of motion, supple/symm/no masses Respiratory: chest non-tender, lungs clear, normal breath sounds, speaking full sentences Cardiovascular #1: regular rate, rhythm, no edema Gastrointestinal: normal bowel sounds, non tender, soft, non-distended, no guarding, no rebound Rectal: deferred Genitourinary: no CVA tenderness Musculoskeletal: back normal, normal range of motion, gait/station normal, non- tender Neurologic: alert, motor strength/tone normal, oriented x3, sensory intact, responsive, speech normal Psychiatric: judgement/insight normal, memory normal, mood/affect normal, no suicidal/homicidal ideation Skin: no rash Lymphatic: no adenopathy Medical Decision Making RIN Attestation All diagnoses and treatment plans were reviewed and discussed with my supervising physician Dr. Uribe Diagnostic Impression: Primary Impression: Recurrent UTI ER Course 64-year-old female with history of recurrent UTI here complaining of urinary frequency and urgency and dysuria x2 days. Patient requesting something in fluoroquinolone family as patient be tested and decided that this will be directly biotic for her. Patient still looking for a new practitioner as PCP. Denies any fever and chills, flank pain, abdominal pain nausea or vomiting. Has been taking Azo with minimal symptom relief. Patient has been seen at [place] [facility] multiple times for recurrences of UTI. Denies being sexually active , denies any vaginal discharge. Ddx considered but are not limited to: UTI, pyelonephritis, urinary incontinence , prolapsed bladder Vital signs: are WNL, pt. is afebrile H&PE are most consistent with: Recurrent UTI ORDERS: UA, urine cx, Levaquin, Pyridium ED INTERVENTIONS: Levaquin DISCHARGE: At this time pt. is stable for d/c to home. Will provide printed patient care instructions, and any necessary prescriptions. Care plan and follow up instructions have been discussed with the patient prior to discharge. Patient left before urine results were back and took a prescription. Patient to follow-up with primary doctor, take medication as directed, if worsening symptoms return to the emergency room Last Vital Signs Date Time Temp Pulse Resp B/P (MAP) Pulse Ox O2 Delivery O2 Flow Rate FiO2 12/04/19 19:41 98.4 82 19 99/67 94 Room Air Disposition: HOME, SELF-CARE Condition: Stable Scripts Levofloxacin* (LEVAQUIN*) 500 Mg Tablet 500 MG ORAL DAILY for 4 Days, #4 TAB Prov: Mariya Busby 12/04/19 Phenazopyridine Hcl* (PYRIDIUM*) 200 Mg Tablet 200 MG ORAL THREE TIMES A DAY for 2 Days, #6 TAB 0 Refills Prov: Mariya Busby 12/04/19 Patient Instructions: Urinary Tract Infection Additional Instructions: Take medication as directed, follow-up with your primary care provider, if worsening symptoms return to the emergency room Mariya Busby Dec 04, 2019 19:47
[2019-12-04] MEDS ORDERED: LEVAQUIN500 MG ORAL (19:48)
[2019-12-04] MEDS ORDERED: PHENAZOPYRIDIN200 MG ORAL (19:48)
[2019-12-04 19:55] VITALS: BP 99/67
[2019-12-04 20:00] LABS: APPEARANCE,URINE CLEAR; BILIRUBIN, URINE NEGATIVE (NEGATIVE); GLUCOSE, URINE (UA) NEGATIVE (NEGATIVE); KETONES,URINE NEGATIVE (NEGATIVE); LEUKOCYTE ESTERASE ,URINE NEGATIVE (NEGATIVE); NITRITE,URINE NEGATIVE (NEGATIVE); PH,URINE 5 (4.5-8.0); PROTEIN,URINE NEGATIVE (NEGATIVE); UROBILINOGEN,URINE NORMAL MG/DL (0.0-1.0)
[2019-12-04 20:01] LABS: COLOR,URINE YELLOW
== END 2019-12-04 19:55 | disposition home or self-care (01) ==
LOC: EMR 19:30
DX: N39.0 Urinary tract infection, site not specified (principal); Z88.0 Allergy status to penicillin
CPT/HCPCS: 81003; Z7502; 99282

== ENCOUNTER 2020-01-09 13:08 | Emergency (ER) | payer MEDICAID ==
[~2020-01-09] VITALS: Ht 170.2 cm; Wt 73.0 kg
[2020-01-09 13:21] VITALS: BP 109/70
[2020-01-09] MEDS ORDERED: Ketorolac 30mg Inj IM ONE (13:30)
[2020-01-09] MEDS ORDERED: Methocarbamol 750mg tab ORAL ONE (13:30)
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
[2020-01-09] MEDS ORDERED: ROBAXIN-500MG ORAL (14:40)
[2020-01-09] MEDS ORDERED: LIDODERM700 M1 TOPIC (14:40)
[2020-01-09] MEDS ORDERED: IBUPROFEN600 M1 ORAL (14:40)
[2020-01-09 14:46] VITALS: BP 115/74
== END 2020-01-09 14:46 | disposition home or self-care (01) ==
LOC: EMR 13:40
DX: S39.012A Strain of muscle, fascia and tendon of lower back, initial encounter (principal); V43.52XA Car driver injured in collision with other type car in traffic accident, initial encounter; Y92.410 Unspecified street and highway as the place of occurrence of the external cause; Y99.8 Other external cause status
CPT/HCPCS: 72131; 96372; J1885; Z7502; 99284

== ENCOUNTER 2020-02-12 15:41 | Emergency (ER) | payer MEDICAID ==
[~2020-02-12] VITALS: Ht 170.2 cm; Wt 74.4 kg
[~2020-02-12 15:41] MED LIST changes: +ROBAXIN-500MG ORAL
[2020-02-12 16:25] VITALS: BP 116/74
--- NOTE | 2020-02-12 16:25 | NUR ---
ED Nurse Note: Pt walked in from home c/o burning chest discomfort that started a few days ago. Pt reports quitting smoking about a week ago. Pt also reporting left earache with drainage and cough with clear phlegm. Respirations even and unlabored on room air. Vitals stable as documented. A+Ox4, speaking in complete sentences.
[2020-02-12 17:13] LABS: BASOPHILS % (AUTO) 1.6 % (0.0-2.0); EOSINOPHILS % (AUTO) 1.2 % (0.0-3.0); HEMATOCRIT 42.3 % (37.0-47.0); HEMOGLOBIN 14.3 G/DL (12.0-16.0); LYMPHOCYTES % (AUTO) 29.5 % (20.0-45.0); MEAN CORPUSCULAR VOLUME 89 FL (80-99); MONOCYTES % (AUTO) 6.4 % (1.0-10.0); NEUTROPHILS % (AUTO) 61.3 % (45.0-75.0); PLATELET COUNT 244 K/UL (150-450); RED BLOOD COUNT 4.77 M/UL (4.20-5.40); RED CELL DISTRIBUTION WIDTH 12.6 % (11.6-14.8); WHITE BLOOD COUNT 6.8 K/UL (4.8-10.8)
[2020-02-12 17:31] LABS: ANION GAP 6 mmol/L (5-15); BLOOD UREA NITROGEN 13 mg/dL (7-18); CALCIUM 9.3 MG/DL (8.5-10.1); CARBON DIOXIDE 30 MMOL/L (21-32); CHLORIDE 103 MMOL/L (98-107); CREATININE 1.1 MG/DL (0.55-1.30); POTASSIUM 3.8 MMOL/L (3.5-5.1); SODIUM 139 MMOL/L (136-145)
[2020-02-12 17:47] LABS: ALANINE AMINOTRANSFERASE 15 U/L (12-78); ALBUMIN 4.3 G/DL (3.4-5.0); ALBUMIN/GLOBULIN RATIO 1.7 (1.0-2.7); ALKALINE PHOSPHATASE 74 U/L (46-116); ASPARTATE AMINO TRANSFERASE 15 U/L (15-37); BILIRUBIN,TOTAL 0.3 MG/DL (0.2-1.0); FERRITIN 78 NG/ML (8-388); LACTATE DEHYDROGENASE 187 U/L (81-234)
[2020-02-12] MEDS ORDERED: Albuterol ud Inhalation HHN ONE (18:30)
--- NOTE | 2020-02-12 18:33 | Emergency Room Report ---
History of Present Illness General Chief Complaint: Upper Respiratory Illness Source: Patient Present Illness HPI The patient has a history of heavy tobacco use. She states that she quit smoking a week and a half ago. She states over the last week she has noticed some chest tightness and burning. She also feels short of breath. She has had some cough. She denies sputum production. She denies fever or chills. She denies congestion. She denies headache or neck pain. She denies a history of COPD or asthma. However, she has not been evaluated for this. She notes that she did use her daughter's inhaler intermittently throughout the past week and felt that this helped the tightness in her chest. She denies long distance travel or leg swelling. She has no other complaints. Allergies: Coded Allergies: DOXYCYCLINE (Verified Allergy, Mild, 10/25/15) PENICILLINS (Verified Allergy, Mild, Hives, 02/06/12) COVID-19 Screening Contact w/high risk pt: No Recent Travel to affected area: No Experienced COVID-19 symptoms?: No COVID-19 Testing performed PROPERTY UNDERWRITER: No Patient History Past Medical History: see triage record Past Surgical History: other - Lumbar surgery, Shoulder surgery Social History: Denies: smoking - Hx of heavy tobacco use, quit 1.5 weeks ago., alcohol use, drug use Last Menstrual Period: na Reviewed Nursing Documentation: PMH: Agreed; PSxH: Agreed Nursing Documentation-PMH Past Medical History: No History, Except For Review of Systems All Other Systems: negative except mentioned in HPI Physical Exam Vital Signs Date Time Temp Pulse Resp B/P (MAP) Pulse Ox O2 Delivery O2 Flow Rate FiO2 02/12/20 15:53 98.4 67 20 108/70 (83) 94 Room Air Sp02 EP Interpretation: reviewed, normal General Appearance: no apparent distress, alert, GCS 15, non-toxic Head: normocephalic, atraumatic Eyes: bilateral eye normal inspection, bilateral eye PERRL ENT: hearing grossly normal, normal pharynx, no angioedema, normal voice Neck: full range of motion, supple/symm/no masses Respiratory: chest non-tender, no respiratory distress, no retraction, no accessory muscle use, speaking full sentences, wheezing - mild wheezing on expiration Cardiovascular #1: regular rate, rhythm, no edema Gastrointestinal: normal inspection Rectal: deferred Musculoskeletal: back normal, normal range of motion, gait/station normal, non- tender Neurologic: alert, motor strength/tone normal, oriented x3, sensory intact, responsive, speech normal Psychiatric: judgement/insight normal, memory normal, mood/affect normal, no suicidal/homicidal ideation Skin: no rash, normal color Medical Decision Making Diagnostic Impression: Primary Impression: Bronchospasm with bronchitis, acute ER Course This patient likely has undiagnosed COPD. The patient was given albuterol inhaler and oral prednisone. Also, the patient's lungs are likely adapting to the change in that she has stopped smoking. The patient had significant improvement in her symptoms with the albuterol. I will give the patient an MDI albuterol inhaler and put her on a burst of steroids. I will also treat the patient with a course of antibiotics as this has been shown to improve the course of a COPD exacerbation. The patient was educated that she should follow- up with her primary care physician and also get a referral to a dry house operator for further assessment of her lungs. At this time, I do not identify an emergency medical condition. The patient was given close return precautions and followup instructions. Laboratory Tests Test 02/12/20 16:40 White Blood Count 6.8 K/UL (4.8-10.8) Red Blood Count 4.77 M/UL (4.20-5.40) Hemoglobin 14.3 G/DL (12.0-16.0) Hematocrit 42.3 % (37.0-47.0) Mean Corpuscular Volume 89 FL (80-99) Mean Corpuscular Hemoglobin 30.0 PG (27.0-31.0) Mean Corpuscular Hemoglobin Concent 33.8 G/DL (32.0-36.0) Red Cell Distribution Width 12.6 % (11.6-14.8) Platelet Count 244 K/UL (150-450) Mean Platelet Volume 7.7 FL (6.5-10.1) Neutrophils (%) (Auto) 61.3 % (45.0-75.0) Lymphocytes (%) (Auto) 29.5 % (20.0-45.0) Monocytes (%) (Auto) 6.4 % (1.0-10.0) Eosinophils (%) (Auto) 1.2 % (0.0-3.0) Basophils (%) (Auto) 1.6 % (0.0-2.0) Sodium Level 139 MMOL/L (136-145) Potassium Level 3.8 MMOL/L (3.5-5.1) Chloride Level 103 MMOL/L (98-107) Carbon Dioxide Level 30 MMOL/L (21-32) Anion Gap 6 mmol/L (5-15) Blood Urea Nitrogen 13 mg/dL (7-18) Creatinine 1.1 MG/DL (0.55-1.30) Estimated Glomerular Filtration Rate > 60 mL/min (>60) Glucose Level 91 MG/DL (74-106) Calcium Level 9.3 MG/DL (8.5-10.1) Ferritin 78 NG/ML (8-388) Total Bilirubin 0.3 MG/DL (0.2-1.0) Aspartate Amino Transferase (AST) 15 U/L (15-37) Alanine Aminotransferase (ALT) 15 U/L (12-78) Alkaline Phosphatase 74 U/L (46-116) Lactate Dehydrogenase 187 U/L (81-234) C-Reactive Protein, Quantitative < 0.4 mg/dL (0.00-0.90) Total Protein 6.9 G/DL (6.4-8.2) Albumin 4.3 G/DL (3.4-5.0) Globulin 2.6 g/dL Albumin/Globulin Ratio 1.7 (1.0-2.7) Microbiology Date/Time Source Procedure Growth Status 02/12/20 16:40 Nasopharynx SARS-CoV-2 RdRp Gene Assay - Final Complete EKG Diagnostic Results Rate: bradycardiac Rhythm: other - S.bradycardia ST Segments: no acute changes Rhythm Strip Diag. Results EP Interpretation: yes Rate: 50's Rhythm: no PVC's, no ectopy, other - S.bradycardia Chest X-Ray Diagnostic Results Chest X-Ray Diagnostic Results : Chest X-Ray Ordered: Yes # of Views/Limited/Complete: 1 View Indication: Shortness of Breath EP Interpretation: Yes Interpretation: no consolidation, no effusion, no pneumothorax, no acute cardiopulmonary disease Impression: No acute disease Electronically Signed by: Comfort Venegas DO Last Vital Signs Date Time Temp Pulse Resp B/P (MAP) Pulse Ox O2 Delivery O2 Flow Rate FiO2 02/12/20 16:25 98.0 83 20 116/74 95 Room Air Status: improved Disposition: HOME, SELF-CARE Condition: Improved Referrals: NON PHYSICIAN (PCP) Comfort Venegas DO Feb 12, 2020 18:33
[2020-02-12 18:37] VITALS: BP 99/65
--- NOTE | 2020-02-12 18:45 | NUR ---
ED Nurse Note: RT @ bedside for breathing tx. Pt wanted IV taken out. IV dced.
[2020-02-12] MEDS ORDERED: ZITHROMAX250 MG ORAL (19:16)
[2020-02-12] MEDS ORDERED: ALBUTEROL SULF8.5 G2 IH (19:16)
[2020-02-12] MEDS ORDERED: PREDNISONE20 MG ORAL (19:16)
[2020-02-12] MEDS ORDERED: ALBUTEROL2.5 MG/3 M HHN (19:20)
[2020-02-12 19:22] VITALS: BP 119/69
--- NOTE | 2020-02-13 15:51 | Diagnostic Imaging Report ---
Indication: Reason For Exam: SOB Technique: Single AP view of the chest. Comparison: Chest radiograph dated 02/14/2019 Findings: The cardiomediastinal silhouette is unchanged in appearance. Biapical scarring and right lower lobe chronic atelectasis/scarring is again demonstrated. 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 No new airspace consolidation. No pneumothorax or pleural effusion. No acute osseous abnormality. IMPRESSION: No radiographic evidence of acute cardiopulmonary process.
== END 2020-02-12 19:22 | disposition home or self-care (01) ==
LOC: EMR 16:30
DX: J20.9 Acute bronchitis, unspecified (principal); Z87.891 Personal history of nicotine dependence; Z88.0 Allergy status to penicillin; R00.1 Bradycardia, unspecified
CPT/HCPCS: 36415; 71045; 80053; 82728; 83615; 85025; 86140; 93005; 94640; 96360; J7030; J7512; U0002; Z7502; 99284

== ENCOUNTER 2020-04-07 07:18 | Emergency (ER) | payer MEDICAID ==
[~2020-04-07] VITALS: Ht 170.2 cm; Wt 69.9 kg
[~2020-04-07 07:18] MED LIST changes: +ALBUTEROL SULF8.5 G2 IH; +ALBUTEROL2.5 MG/3 M HHN; +PREDNISONE20 MG ORAL
[2020-04-07 07:25] VITALS: BP 90/64
--- NOTE | 2020-04-07 07:25 | NUR ---
ED Nurse Note: pt walked in to ER from home due to Rt side ear pain and drainage x 1 week. pt aao x4 and ambulatory. no cardiac or pulmonary distress noted at this time.
--- NOTE | 2020-04-07 07:49 | NUR ---
ED Nurse Note: pt started complaining of waiting for doctor time after waiting 20 minutes. pt stated "I feel like having clausterphobia for being here." pt was informed about current waiting time. no aggressive behavior noted at this time but remaining unpleasant.
--- NOTE | 2020-04-07 08:22 | NUR ---
ED Nurse Note: ERMD at bedside.
[2020-04-07] MEDS ORDERED: Bactrim-DS 1 tab ORAL ONE (08:30)
--- NOTE | 2020-04-07 08:31 | Emergency Room Report ---
History of Present Illness General Chief Complaint: Earache Source: Patient Present Illness HPI Patient presents complaining of 3 days of right ear pain. Also has some drainage. She is not had any fever. Also she has pain when she touches around the ear on that side. She denies any change in her hearing. She denies sore throat. There is no nausea, vomiting or diarrhea. She rates the pain 9-//10. She states it does not radiate down her neck. She took [place] yesterday. It helped much. The patient has been self isolating. No chest pain, palpitations, dysuria, abdominal pain, shortness of breath, joint pain, rashes, dizziness, headache. Allergies: Coded Allergies: DOXYCYCLINE (Verified Allergy, Mild, 10/25/15) PENICILLINS (Verified Allergy, Mild, Hives, 02/06/12) COVID-19 Screening Contact w/high risk pt: No Recent Travel to affected area: No Experienced COVID-19 symptoms?: No COVID-19 Testing performed MILL OILER: No Patient History Past Medical History: see triage record Past Surgical History: other - back and shoulder surgery Social History: Denies: smoking Social History Narrative lives by self Reviewed Nursing Documentation: PMH: Agreed; PSxH: Agreed Review of Systems All Other Systems: negative except mentioned in HPI Physical Exam Vital Signs Date Time Temp Pulse Resp B/P (MAP) Pulse Ox O2 Delivery O2 Flow Rate FiO2 04/07/20 07:19 98.2 96 15 90/64 (73) 100 Room Air Sp02 EP Interpretation: reviewed, normal General Appearance: well appearing, no apparent distress, GCS 15 Head: normocephalic Eyes: bilateral eye normal inspection, bilateral eye PERRL ENT: normal pharynx, moist mucus membranes, other - TM R slight erythema. Also pinna tenderness R. L normal Neck: full range of motion, supple Respiratory: normal inspection Cardiovascular #1: regular rate, rhythm Cardiovascular #2: 2+ radial (R) Gastrointestinal: normal inspection Musculoskeletal: gait/station normal Neurologic: alert, grossly normal Psychiatric: mood/affect normal Skin: normal color, other - fully dressed Medical Decision Making Diagnostic Impression: Primary Impression: Otitis media Qualified Codes: H66.011 - Acute suppurative otitis media with spontaneous rupture of ear drum, right ear ER Course The patient presents with right ear pain with drainage. Based on exam this appears to be otitis media however she also has pinna tenderness. The fact that there is drainage it is suggested that she might have rupture even though this was not seen. Antibiotics are indicated. Also analgesics. Initially the patient requested amoxicillin. When allergies were checked she is allergic to penicillin. She was given Bactrim instead. Discussed treatment plan and need for follow-up with patient. Patient is stable for outpatient observation and treatment. Last Vital Signs Date Time Temp Pulse Resp B/P (MAP) Pulse Ox O2 Delivery O2 Flow Rate FiO2 04/07/20 08:43 97.9 79 18 98/65 100 Room Air Status: improved Disposition: HOME, SELF-CARE Condition: Improved Scripts Neomycin/Polymyxin B Sulf/Hc ([id number] EAR SUSP) 10 Ml Drops.susp 3 DROP OT TID, #10 ML Prov: Ponce Jimenez MD 04/07/20 Trimethoprim/Sulfamethoxazole 160/800* (BACTRIM DS TABLET*) 1 Each Tablet 1 TAB ORAL Q12H, #14 TAB 0 Refills Prov: Ponce Jimenez MD 04/07/20 Hydrocodone Bit/Acetaminophen 5-325* (NORCO 5-325 TABLET*) 1 Each Tablet 1 TAB ORAL Q6H PRN for FOR PAIN, #8 TAB 0 Refills Prov: Ponce Jimenez MD 04/07/20 Ibuprofen* (MOTRIN*) 600 Mg Tablet 600 MG ORAL Q6H PRN for FOR PAIN, #20 TAB 0 Refills Prov: Ponce Jimenez MD 04/07/20 Ponce Jimenez MD Apr 07, 2020 08:30
[2020-04-07] MEDS ORDERED: IBUPROFEN600 M1 ORAL (08:34)
[2020-04-07] MEDS ORDERED: BACTRIM DS TAB1 EAC1 ORAL (08:34)
[2020-04-07] MEDS ORDERED: NEOMYCIN-POLYMY10 M1 OT (08:34)
[2020-04-07] MEDS ORDERED: NORCO 5-325 TA1 EAC1 ORAL (08:34)
[2020-04-07 08:43] VITALS: BP 98/65
== END 2020-04-07 08:40 | disposition home or self-care (01) ==
LOC: EMR 08:33
DX: H66.011 Acute suppurative otitis media with spontaneous rupture of ear drum, right ear (principal); Z88.0 Allergy status to penicillin
CPT/HCPCS: 99282

== ENCOUNTER 2020-04-10 11:04 | Emergency (ER) | payer MEDICAID ==
[~2020-04-10] VITALS: Ht 170.2 cm; Wt 72.6 kg
[~2020-04-10 11:04] MED LIST changes: +NEOMYCIN-POLYMY10 M1 OT; +NORCO 5-325 TA1 EAC1 ORAL
[2020-04-10 11:30] VITALS: BP 120/56
[2020-04-10] MEDS ORDERED: CEPHALEXIN500 MG ORAL (11:38)
[2020-04-10] MEDS ORDERED: IBUPROFEN400 MG ORAL (11:42)
[2020-04-10] MEDS ORDERED: DEBROX15 M1 RIGHT EAR (11:42)
--- NOTE | 2020-04-10 11:46 | Emergency Room Report ---
History of Present Illness General Chief Complaint: Earache Source: Patient Present Illness HPI Patient is a 64-year-old female who presents for increased right-sided earache. Prior history of ear infections in the past.Patient had recently been given prescription for eardrops as well as antibiotics. Reports having increased pain to the right ear. Denies any fever. Reports having some slight change in pain with swallowing. Denies any vomiting or diarrhea. No recent cough. Patient had improvement while she was on antibiotics recently. Allergies: Coded Allergies: DOXYCYCLINE (Verified Allergy, Mild, 10/25/15) PENICILLINS (Verified Allergy, Mild, Hives, 02/06/12) COVID-19 Screening Contact w/high risk pt: No Recent Travel to affected area: No Experienced COVID-19 symptoms?: No COVID-19 Testing performed DOOR [employer]OR: Yes COVID-19 Screening: Negative COVID-19 COVID-19 Testing Source: 03/28 Patient History Past Medical History: see triage record Reviewed Nursing Documentation: PMH: Agreed; PSxH: Agreed Review of Systems All Other Systems: negative except mentioned in HPI Physical Exam Vital Signs Date Time Temp Pulse Resp B/P (MAP) Pulse Ox O2 Delivery O2 Flow Rate FiO2 04/10/20 11:09 98.8 66 18 100/57 (71) 99 Room Air General Appearance: well appearing, no apparent distress, alert, GCS 15, non- toxic Head: normocephalic, atraumatic ENT: normal voice, other - Small amount of right-sided ear canal wax, TM looks without any erythema. Canal swelling Neck: full range of motion, supple Respiratory: no respiratory distress, speaking full sentences Musculoskeletal: no calf tenderness Neurologic: normal gait Psychiatric: mood/affect normal Skin: no rash Medical Decision Making Diagnostic Impression: Primary Impression: Earache on right Additional Impression: Abrasion of ear canal ER Course Patient presented for right-sided ear pain. Differential diagnosis include was not limited to otitis media, otitis externa, cerumen impaction among others. Patient's physical exam showed some moderate amount of right-sided earwax. Patient was verbally consented for earwax removal with a curette. I did remove some earwax and there was a small canal abrasion subsequently. Patient was advised not to put anything in the ear directly for several days. She was given prescription for oral antibiotics. She is also given prescription for pain medication. Patient not appear to have any evidence of systemic toxicity. She is advised to return if worse. This medical record is generated with [employer] abrasive worker software. There may be some abrasive worker discrepancies related to use of this software Last Vital Signs Date Time Temp Pulse Resp B/P (MAP) Pulse Ox O2 Delivery O2 Flow Rate FiO2 04/10/20 11:09 98.8 66 18 100/57 (71) 99 Room Air Status: improved Disposition: HOME, SELF-CARE Condition: Stable Scripts Carbamide Peroxide (DEBROX) 15 Ml Drops 5 DROP RIGHT EAR TWICE A DAY for 4 Days, #120 ML 0 Refills Prov: Man Arango MD 04/10/20 Ibuprofen* (MOTRIN*) 400 Mg Tablet 400 MG ORAL Q8H, #30 TAB 0 Refills Prov: Man Arango MD 04/10/20 Cephalexin* (KEFLEX*) 500 Mg Capsule 500 MG ORAL EVERY 6 HOURS, #28 CAP Prov: Man Arango MD 04/10/20 Patient Instructions: Otitis Externa Additional Instructions: Follow up with your ENT. Return if worse. Man Arango MD Apr 10, 2020 11:45
[2020-04-10] MEDS ORDERED: Bacitracin Oint UD TOPIC ONE ×2 (11:53→11:57)
[2020-04-10 12:29] VITALS: BP 126/59
== END 2020-04-10 12:30 | disposition home or self-care (01) ==
LOC: EMR 11:18
DX: H92.01 Otalgia, right ear (principal); S00.411A Abrasion of right ear, initial encounter; X58.XXXA Exposure to other specified factors, initial encounter; Y93.9 Activity, unspecified; Y92.9 Unspecified place or not applicable; Z88.0 Allergy status to penicillin; Z88.1 Allergy status to other antibiotic agents
CPT/HCPCS: 99282

== ENCOUNTER 2020-06-22 07:18 | Emergency (ER) | payer MEDICAID ==
[~2020-06-22] VITALS: Ht 165.1 cm; Wt 74.8 kg
[~2020-06-22 07:18] MED LIST changes: +DEBROX15 M1 RIGHT EAR; +IBUPROFEN400 MG ORAL
[2020-06-22 07:55] VITALS: BP 110/60
--- NOTE | 2020-06-22 08:01 | NUR ---
Patient reported to the ER with c/o headache probably related to toothache per patient. No other medical issues voiced. [id number] Independently ambulatory
[2020-06-22] MEDS ORDERED: Ketorolac 30mg Inj IM ONE (08:15)
[2020-06-22] MEDS ORDERED: CEPHALEXIN500 MG ORAL (08:20)
[2020-06-22] MEDS ORDERED: ACETAMINOPHEN-1 EAC1 ORAL (08:20)
== END 2020-06-22 08:28 | disposition home or self-care (01) ==
LOC: EMR 08:16
DX: K08.89 Other specified disorders of teeth and supporting structures (principal); R51.9 Headache, unspecified
CPT/HCPCS: 96372; J1885; Z7502; 99283